=== PATIENT | female | born 1960 | race Caucasian/White ===

== ENCOUNTER 2024-02-18 11:20 | Outpatient (OUT) | payer OTHER, SELFPAY ==
--- NOTE | 2024-02-18 11:50 | MM_ITS ---
Patient Name: LENKA SILVERMAN MR#: [id number] : 1960 Exam Date: 02/18/2024 Ordering Doctor: Non-Staff Physician RADIOLOGY REPORT PROCEDURE: MM TOMOSYNTHESIS SCREENING BI COMPARISON: MG MAMM SCREEN 3D JACQUELINE CAD, 07/17/2022. MG MAMM SCREEN 3D JACQUELINE CAD, 07/11/2021. INDICATIONS: Screening Calculator Name NCI Breast Cancer Risk Assessment Tool 5 Year Breast Cancer Risk 1.90% Lifetime Breast Cancer Risk 8.60% Personal Breast Cancer No Personal Ovarian Cancer No Treatments None Family Cancers Aunt-paternal with breast cancer at age ~40. LOCATION: [facility] BREAST COMPOSITION: There are scattered areas of fibroglandular density. FINDINGS: DIAGNOSTIC CATEGORY 2--BENIGN FINDING. NO CHANGE FROM COMPARISON. Scattered benign-appearing calcifications are present. Limited exam secondary to difficulty positioning the patient with poor visualization axillary tails and posterior breasts RIGHT BREAST: No significant suspicious finding. LEFT BREAST: No significant suspicious finding. RECOMMENDATIONS: ROUTINE MAMMOGRAM AND CLINICAL EVALUATION IN 12 MONTHS. PLEASE NOTE: A NORMAL MAMMOGRAM DOES NOT EXCLUDE THE POSSIBILITY OF BREAST CANCER. A CLINICALLY SUSPICIOUS PALPABLE LUMP SHOULD BE BIOPSIED. Dictated by: Iraj Byrne MD on 02/18/2024 at 12:55 Approved by: Iraj Byrne MD on 02/18/2024 at 12:56
== END 2024-02-18 11:21 | disposition home or self-care (01) ==
LOC: MAMMO 11:20
DX: Z12.31 Encounter for screening mammogram for malignant neoplasm of breast (principal); Z80.3 Family history of malignant neoplasm of breast
CPT/HCPCS: 77063; 77067

== ENCOUNTER 2025-03-23 18:24 | Outpatient (OUT) | payer OTHER, SELFPAY ==
--- OUTSIDE RECORDS SUMMARY | 2025-03-23 18:30 | XMS_ITS | Patient Health Record ---
Author Organization [facility] in [place] Address [address] [place] [address] Care Team Providers Care Solar Installation Foreman Name Role Phone Dustin Joseph MD Primary Care Provider Unavailabl e Reason For Referral No Information Plan Of Treatment No Information Insurance Providers Payer Name Payer Address Payer Phone Subscriber Number Group Number Insured Name Patient Relationship to Insured Coverage Start Date Coverage End Date ANTHEM ACCESS PPO PLUS LOCAL PLAN [address] [place] [address] [id number] Katlin Carpenter Self - patient is the insured 5
--- OUTSIDE RECORDS SUMMARY | 2025-03-23 18:30 | XMS_ITS | Clinical Summary ---
Author Organization [facility] Address [address] [place] [address] Care Team Providers Care Chief Nursing Officer Name Role Phone Unavailable Primary Care Provider Unavailabl e Social History Tobacco UseTypesPacks/DayYears UsedDateSmoking Tobacco: Never Assessed CommentsUnknownSex and Gender InformationValueDate RecordedSex Assigned at Not on fileLegal OctTvcfog88/15/2023 6:43 PM EDTGender IdentityNot on fileSexual OrientationNot on file Last Filed Vital Signs Vital SignReadingTime TakenCommentsBlood Pressure--Pulse--Temperature-- Respiratory Rate--Oxygen Saturation--Inhaled Oxygen Concentration--Gblhbq79.1 kg (170 lb)01/05/2021 12:00 PM FDPZxqqet922 cm (5' 3 )10/24/2021 12:00 PM EDTBody Mass Index30.11001/05/2021 12:00 PM EDT Plan of Treatment Not on file Insurance
--- OUTSIDE RECORDS SUMMARY | 2025-03-23 18:30 | XMS_ITS | Clinical Summary ---
Author Organization [facility] Address [id number] [address] [place] [address] Care Team Providers Care Architectural Intern Name Role Phone No Pcp, No Pcp Primary Care Provider Unavailabl e Allergies Active AllergyReactionsCriticalityNoted DateCommentsSulfa (Sulfonamide Antibiotics)LyokRdc2602/15/2021 Medications No known medications Active Problems ProblemNoted DateDiagnosed DateSymptomatic opohzqhuibnnpv50/10/2021 Immunizations ImmunizationAdministration DatesNext DueCOVID-19 Vaccine, vector-nr, rS-Ad26, PF, 0.5mL07/27/2020 Family History Medical HistoryRelationNameCommentsOtherFatherunsureOtherMothercomplications after surgeryBreast cancerPaternal AuntColon cancerPaternal UncleOvarian cancer Neg HxRelationNameStatusCommentsFatherDeceasedMotherDeceasedPaternal Aunt Paternal Uncle Social History Tobacco UseTypesPacks/DayYears UsedDateSmoking Tobacco: NeverSmokeless Tobacco: NeverAlcohol UseStandard Drinks/WeekCommentsYes7 (1 standard drink = 0.6 oz pure alcohol) two half glasses a day ChildcareAnswerDate RecordedChildcareUnknown 10/29/2018EmploymentAnswerDate WtmzckgdRhdmslbavaJfpkyit19/12/2019Hunger ScreeningAnswerDate RecordedWithin the past 12 months we worried whether our food would run out before we got money to buy more.Never True09/29/2024Within the past 12 months the food we bought just didn't last and we didn't have money to get more.Never True09/29/2024Purpose - LifeAnswerDate RecordedPurpose and direction in bwpmDlyzjtf86/15/2021CommentsNoSex and Gender Information ValueDate RecordedSex Assigned at BirthNot on fileLegal ZnzEslaky84/06/2015 11:51 AM EDTGender IdentityNot on fileSexual OrientationNot on file Last Filed Vital Signs Vital SignReadingTime TakenCommentsBlood Xufuylob170/78009/29/2024 8:15 AM EDT Fvmpg430909/29/2024 8:15 AM XNIMasfuopyovo12.1 ??C (98.7 ??F)09/29/2024 5:00 AM EDTRespiratory Zpbz231009/29/2024 8:15 AM EDTOxygen Vjcamxdkch59%09/29/2024 8:15 AM EDTInhaled Oxygen Concentration--Todqtq82.9 kg (169 lb 9.6 oz)06/16/2021 9:15 AM ULTIftdik976 cm (5' 3 )06/16/2021 9:15 AM ESTBody Mass Index30.04006/16/2021 9:15 AM EST Plan of Treatment Health MaintenanceDue DateLast DoneCommentsDepression Mumpzkozy79/11/1974Tobacco Ibnvbapfk04/11/1974Adult BMI Ggkucpqez73/11/1980DTaP,Tdap and Td Vaccines (1 - Tdap)1980Pap Smear5006/16/2021, 06/16/2021, 05/31/2015COVID-19 Vaccine (3 - season)501/11/2021, 07/27/2020Influenza Vaccine 01/18/2025RSV ( or age 60+ yrs) (1 - 1-dose 75+ series)2036Zoster (Shingles) KfdmrzaWauzmvjgv54/13/2022, 07/01/2021 Medical Devices Not on file Procedures Procedure NamePriorityDate/TimeAssociated DiagnosisCommentsHIGH RISK HPV W/SHA Gferdnt8406/16/2021 10:52 AM EST from Last 3 Months or Most Recently Relevant to Health Maintenance Results * High risk HPV w/sha (06/16/2021 10:52 AM EST)ComponentValueRef RangeTest MethodAnalysis TimePerformed AtPathologist SignatureHpv specimen typeThinPrep 06/19/2021 10:52 AM ESTSUNQUESTHpv 16NegativeNegative^Kzizvkvw71/01/2022 2:41 PM [facility]Hpv 18NegativeNegative^Akuiberv38/01/2022 2:41 PM [facility] LABOther high risk hpvNegative Negative^Wsycjexo43/01/2022 2:41 PM [facility] LABComment: HPV types 31,33,35,39,45,52,56,58,59,66 and 68 DNA were undetectable. Specimen (Source)Anatomical Location / LateralityCollection Method / Volume Collection TimeReceived ShvqLAGGW92/28/2022 10:52 AM EST06/19/2021 10:52 AM EST Narrative Authorizing ProviderResult TypeResult StatusDacam Moulton MDLAB BLOOD ORDERABLESFinal ResultPerforming OrganizationAddressCity/State/ZIP CodePhone Number SUN[facility] [address] [facility] [address] [place] [address] from Last 3 Months or Most Recently Relevant to Health Maintenance Insurance Care Teams Team MemberRelationshipSpecialtyStart DateEnd Date [place], [place] [address] PCP - [facility]09/29/24
--- OUTSIDE RECORDS SUMMARY | 2025-03-23 18:30 | XMS_ITS | Clinical Summary ---
Author Organization [facility] Address [address] [place] [address] Care Team Providers Care Office Associate Name Role Phone Weston Hood Primary Care Provider [phone] Allergies Active AllergyReactionsCriticalityNoted DateCommentsSulfa (Sulfonamide Antibiotics)Hives,ZlrlTds0305/03/2010 Medications MedicationSigDispense QuantityRefillsLast FilledStart DateEnd DateStatus furosemide (Lasix) 20 mg tablet Take 20 mg by mouth in the morning.5Active valsartan (Diovan) 40 mg tablet Take 40 mg by mouth in the morning.5Active Encounters DateTypeDepartmentCare GdkxZqvgzjozufe96/13/2025 9:00 AM EDTFollow-Up [facility] [address] [place] [id number] Shruti Meza CNP Chest pain, unspecified type (Primary Dx)from Last 3 Months Social History Tobacco UseTypesPacks/DayYears UsedDateSmoking Tobacco: NeverSmokeless Tobacco: Never Tobacco Cessation:Counseling Given: Not Answered Alcohol UseStandard Drinks/WeekCommentsYes0 (1 standard drink = 0.6 oz pure alcohol)CommentsUnknownSex and Gender InformationValueDate RecordedSex Assigned at NjzkfHhgjgg90/13/2025 8:55 AM EDTLegal TpeXqoyhr91/14/2025 11:30 AM EDTGender EosiydwxIelsta38/13/2025 8:55 AM EDTSexual OrientationHeterosexual or Kfxqcokz81/13/2025 8:55 AM EDT Last Filed Vital Signs Vital SignReadingTime TakenCommentsBlood Naglchvs016/8112/30/2024 9:00 AM EDT Iujug905112/30/2024 9:00 AM EDTTemperature--Respiratory Rate--Oxygen Wlolprofqu09% 12/30/2024 9:00 AM EDTInhaled Oxygen Concentration--Cynknq39.6 kg (71 lb 12.8 oz)12/30/2024 9:00 AM UQPJzcdhk984 cm (5' 3 )12/30/2024 9:00 AM EDTBody Mass Index12.72012/30/2024 9:00 AM EDT Plan of Treatment Health MaintenanceDue DateLast DoneCommentsCT Wsfteeemkecf88/11/1962Colonoscopy 1961FOBT1961Jzycektzznfsc60/11/1962Depression Arycjqjhr13/11/1974Pap Smear1982Adult Tfxyhly3906/30/1983Cervical Cancer Kqslzvzhr32/11/1992 HPV/Rsfstw3406/30/19916699Tmejkdibv11/11/2002FIT-DNA06/25/271328/1Colorectal Cancer Oospffrrf84/28/2669UHH91/28/670316/4COVID-19 Vaccine ( season)501/11/2021, 07/27/2020Influenza Vaccine (#1)2025Zoster HcgpetlnHxtotbpkt76/13/2022, 07/01/2021HIB VaccinesAged OutNo longer eligible based on patient's age to complete this topicHPV VaccinesAged OutNo longer eligible based on patient's age to complete this topicIPV VaccinesAged OutNo longer eligible based on patient's age to complete this topicMeningococcal B VaccineAged OutNo longer eligible based on patient's age to complete this topic Meningococcal VaccineAged OutNo longer eligible based on patient's age to complete this topicPneumococcal Vaccine: Pediatrics (0 to 5 Years) and At-Risk Patients (6 to 64 Years)Aged OutNo longer eligible based on patient's age to complete this topicRotavirus VaccinesAged OutNo longer eligible based on patient's age to complete this topic Insurance Care Teams Team MemberRelationshipSpecialty[place] [address] [place] [address] PCP - [facility]11/18/24
--- OUTSIDE RECORDS SUMMARY | 2025-03-23 18:31 | XMS_ITS | CCD ---
Author Organization [facility] Care Team Providers Care Brick Setter Name Role Phone Unavailable Primary Care Provider Unavailkb BLACK, DR KRYSTLE Funes Consulting Unavailable NATAN ., DIVINA Primary Care Unavailable CEM, DR HUMMEL Admitting Unavailable CEM, DR HUMMEL Attending Unavailable CEM, DR HUMMEL Consulting Unavailable NATAN ., DIVINA Primary Care Unavailable MANNY, DR CESPEDES Admitting Unavailable MANNY, DR CESPEDES Consulting Unavailable MANNY, DR CESPEDES Attending Unavailable Silvia Rodgers Consulting Unavailable STONE HERNANDEZ Referring Unavailable SIMEON BRYANT Primary Care Unavailable ROBERTA HOOD Referring Unavailable STONE HERNANDEZ Primary Care Unavailable Stone Zepeda Primary Care Provider Roberta Hood DO Primary Care Provider STONE SLAUGHTER Attending Unavailable NO PCP, NO PCP Primary Care Unavailable JENIFER YIN Referring Unavailable NO PCP, NO PCP Primary Care Unavailable JENIFER YIN Attending Unavailable JENIFER YIN Attending Unavailable ARIES PARDO Attending Unavailable ARIES PARDO Referring Unavailable ROBERTA HOOD Primary Care Unavailable STONE HERNANDEZ Primary Care Unavailable DOMO SANABRIA Consulting Unavailable DOMO SANABRIA Admitting Unavailable BRODIE ANAYA Attending Unavailable ARIES PARDO Consulting Unavailable ARIES PARDO Attending Unavailable ARIES PARDO Referring Unavailable ROBERTA HOOD Primary Care Unavailable Allergies Allergy ClassificationReported Allergen(s)Allergy TypeDate of OnsetReaction(s) Facility (6 sources)Sulfonamides (Antibiotic)Propensity to adverse reactions to drug 81-00-9089NfbjYPH[address] [place] [address] (3 sources)Sulfonamides (Antibiotic); Translations: [SULFA (SULFONAMIDE ANTIBIOTICS)]Propensity to adverse reactions to drug (disorder)05-03-2010 [facility] Medications Current Medications MedicationDrug Class(es)DatesSig (Normalized)Sig (Original)Acetaminophen (1 source)Start: 61-18-3248djdktvgbkkfme (TYLENOL) tablet 650 mgElastic Bandages & Supports (MEDICAL COMPRESSION STOCKINGS) MISC (4 sources)Start: 99-47-1303Qjssvlh Bandages & Supports (MEDICAL COMPRESSION STOCKINGS) MISC Indications: Swelling of rightfoot 2 each by Does not apply route daily Right and left knee high compression stockings. 30-40 mmHg. To be worn continuously throughout the day. 2 each 02/04/2023 ActiveStart: 66-79-7457Mpdankz Bandages & Supports (MEDICAL COMPRESSION STOCKINGS) MIS Indications: Swelling of rightfoot 2 each by Does not apply route daily Right and left knee high compression stockings. 30-40 mmHg. To be worn continuously throughout the day. 2 each 02/04/2023 Suspendedfurosemide 20 mg oral tablet (4 sources)Loop DiureticStart: 10-22-2024 End: 77-40-0013nnen 1 tablet by mouth once dailyfurosemide (LASIX) 20 MG tablet Take 1 tablet by mouth daily 60 tablet 10/22/2024 11/21/2024 ActiveStart: 78-44-806454 mg, IntraVENous, 2 TIMES DAILY, First dose on Sat10/21/24 at 1800, Until Discontinuedketoconazole 20 mg/ml medicated shampoo (2 sources)Azole AntifungalStart: 29-19-5367nxauwfxzvltm (NIZORAL) 2 % shampoo LATHER ON WET HAIR, LEAVE ON 5 MIN, RINSE TOPICALLY ONCE A DAY Rxskiz54 ml magnesium sulfate 40 mg/ml injection (1 source)Start: 61-47-0970pidcuuevpf 20 mg delayed release oral capsule (2 sources)Proton Pump InhibitorStart: 09-29-2024 End: 45-55-4806nasw 1 capsule by mouth once dailyomeprazole (PRILOSEC) 20 MG delayed release capsule Take 1 capsule by mouth daily 09/29/2024 10/29/2024 Activeondansetron (ZOFRAN-ODT) disintegrating tablet 4 mg (1 source)Start: 99-48-2913acabwosoqfp (ZOFRAN-ODT) disintegrating tablet 4 mg polyethylene glycol 3350 29742 mg powder for oral solution (1 source)Osmotic LaxativeStart: 38-94-4441Dlciwiiby Chloride (1 source)Start: 10-20-2024 End: 04-63-4995kqmzrxsil chloride (KLOR-CON M) extended release tablet 40 mEq terbinafine 250 mg oral tablet (1 source)Allylamine AntifungalStart: 07-10-2022 End: 82-23-0218wfjc 1 tablet by mouth once dailyterbinafine (LAMISIL) 250 MG tablet Take 1 tablet by mouth daily 84 tablet 0 07/10/2022 10/02/2022 Active valsartan 40 mg oral tablet (4 sources)Angiotensin 2 Receptor BlockerStart: 37-55-4408nnlr 1 tablet by mouth once dailyvalsartan (DIOVAN) 40 MG tablet Take 1 tablet by mouth daily 30 tablet 10/23/2024 Active Completed/Discontinued Medications MedicationDrug Class(es)DatesSig (Normalized)Sig (Original)benzocaine 140 mg/ml / butamben 20 mg/ml / tetracaine 20 mg/ml mucosal spray (1 source)Heather Local Anesthetic, Standardized Chemical AllergenStart: 11-09-2024 End: 60-93-7764YGG, Starting on Sat11/09/24 at 0920, Until Sat11/09/24 at 0920, Intra-procedure(Cath)colchicine 0.6 mg oral tablet (1 source)Start: 61-52-5222muge 0.6 mg by mouth twice daily0.6 mg, Oral, 2 TIMES DAILY, First dose on Sat10/20/24 at 2100, Until Discontinued2 ml fentaNYL 0.05 mg/ml injection (1 source)Opioid AgonistStart: 11-09-2024 End: 93-03-3844PsbgaSYJwui, PRN, Starting on Sat11/09/24 at 0921, Until Sat11/09/24 at 0921, Intra-opibuprofen 600 mg oral tablet (1 source)Nonsteroidal Anti-inflammatory DrugStart: 74-14-9917qfwb 600 mg by mouth three times daily at baqhrgat527 mg, Oral, 3 TIMES DAILY WITH MEALS, First dose on Sat10/21/24 at 0800, Until Discontinuediopamidol (ISOVUE-370) 76 % injection 75 mL (1 source)Start: 10-20-2024 End: 55-50-2189bcwx 1 dose intravenously once75 mL, IntraVENous, IMG ONCE PRN, 1 dose, Starting on Sat10/20/24 at 1630, Until Sat10/20/24 at 1723,OtherlevoFLOXacin 750 mg oral tablet (2 sources)Quinolone AntimicrobialStart: 10-19-2024 End: 00-73-2958qcvi 1 tablet by mouth once dailylevoFLOXacin (LEVAQUIN) 750 MG tablet Indications: Left lower lobe pulmonary infiltrate Take 1 tablet by mouth daily for 5 days 5 tablet 10/19/2024 10/22/2024 Discontinued (Stop Taking at Discharge)lidocaine hydrochloride 20 mg/ml mucous membrane topical solution (1 source)Antiarrhythmic, Amide Local AnestheticStart: 11-09-2024 End: 63-93-8107ZUI, Starting on Sat11/09/24 at 0921, Until Sat11/09/24 at 0921, Intra-procedure(Cath)2 ml midazolam 1 mg/ml injection (1 source)BenzodiazepineStart: 11-09-2024 End: 01-20-3102FspvgVYRsxh, PRN, Starting on Sat11/09/24 at 0921, Until Sat11/09/24 at 0921, Intra-procedure(Cath)pantoprazole 40 mg delayed release oral tablet (1 source)Proton Pump InhibitorStart: 72-81-232092 mg, Oral, DAILY BEFORE BREAKFAST, First dose on Sat10/21/24 at 0700, Until Discontinued, Do not crush or break. Substituted for Omeprazole (PRILOSEC).5 ml sodium chloride 9 mg/ml injection (3 sources)Start: -40 mL, IntraVENous, EVERY 12 HOURS SCHEDULED (2 times per day), First dose on Sat10/20/24 at 2100,Until Discontinued, For Line Patency: Peripheral IV = 5 mL; Midline or Central Line = 10 mL/lumen. If following IV push medication, administer flush at same rate as the IV push. Flush volume is determined by type of infusion therapy being given. For non- viscous solutions use: Peripheral IV = 5 mL Midline or Central Line = 10 mL/lumen For viscous solutions (i.e. blood components, parenteral nutrition, contrast media, or after obtaining blood sample) use: Peripheral IV = 10 mL Midline or Central Line = 20 mL/lumenStart: 36-88-7839Orjhq: 10-20-2024 Problems Active Problems Problem ClassificationProblemDateDocumented DateEpisodic/ChronicAbdominal pain (3 sources)Epigastric pain; Translations: [Epigastric pain]Onset: 09-29-2024 EpisodicCongestive heart failure; nonhypertensive (2 sources)Acute congestive heart failure; Translations: [Heart failure, unspecified]Onset: 190982-98-3424QomdqkrNklzcjy (1 source)Onychomycosis; Translations: [Tinea unguium]EpisodicNonspecific chest pain (4 sources)Other chest pain; Translations: [Chest pain]Onset: 25-54-9089Qpklgfep Osteoarthritis (4 sources)Arthritis of right ankle; Translations: [Primary osteoarthritis, right ankle and foot]Onset: 766771-28-2686NnuzsrxWsxea gastrointestinal disorders (3 sources)Eructation; Translations: [Eructation]Onset: 59-37-0237VpllqbptCsgdh lower respiratory disease (1 source)Other nonspecific abnormal finding of lung field; Translations: [Other nonspecific abnormal findingof lung field]Onset: 69-78-9770LrisxcvgBwkcr lower respiratory disease (1 source)Single lobe lung infiltrate; Translations: [Other nonspecific abnormal finding of lung field]13-39-9777TqeslwxmMjlgg screening for suspected conditions (not mental disorders or infectious disease) (4 sources)Encounter for screening mammogram for malignant neoplasm of breast; Translations: [ENC SCR MAMMO MALIG NEOPLASM BREAST]Onset: 29-91-3282Ocgmgdhi Bee-; endo-; and myocarditis; cardiomyopathy (except that caused by tuberculosis or sexually transmitted disease) (13 sources)Pericardial effusion; Translations: [Pericardial effusion]Onset: 333816-91-9342GhqnemoyKghfwfsi codes; unclassified (1 source)Family history of malignant neoplasm of breast; Translations: [FAMILY HX MALIG NEOPLASM OF BREAST]Onset: 09-50-6532ZybuajdnAwgubufuoqjf (1 source)chest pressure since 199Onset: 24-65-0865Wmvqeumvqcgq (1 source)Other pericardial effusion (noninflammatory); Translations: [Other pericardial effusion (noninflammatory)]Onset: 10-20-2024 Past or Other Problems Problem ClassificationProblemDateDocumented DateEpisodic/ChronicDeficiency and other anemia (2 sources)Anemia; Translations: [Anemia, unspecified]Onset: 05-03-2010 00-96-4391TzzibkenIjebizs and fatigue (1 source)Weakness; Translations: [WEAKNESS]Onset: 66-31-9939PpwsgscgHctwn nervous system disorders (4 sources)Paresthesia of skin; Translations: [PARESTHESIA OF SKIN]Onset: 29-74-0121HompbumuRudvslmn; pneumothorax; pulmonary collapse (7 sources)Bilateral pleural effusion; Translations: [Pleural effusion, not elsewhere classified]Onset: 108961-18-5844Qocysiuk Results Test NameValueInterpretationReference RangeFacilityFollow-Upon 12-30-2024 Follow-[id number] Katlin Carpenter 1960 F Date Provider Department Center 12/30/2024 1946-JENIFER YIN [facility] No family history on file Level of Service:09756 [place] OFFICE/OUTPATIENT ESTABLISHED LOW MDM 20 MIN Reason for Visit and Comments: Follow-up [308827] - Test results from stool.NormalUnMercy HospitalCult,Mycobacteriaon 63-28-3908Ounx,MycobacteriaSpecimen Description .THORACENTESIS FLUID Direct Exam NO ACID FAST BACILLI SEEN (CONCENTRATED SMEAR) Culture NO GROWTH 46 DAYS Report Status FINAL 12/07/2024NormalMercy Northbay Medical CenterComment on above:Performed By: #### TROPI #### [facility] [address] [place] [address] Wall Steamer: RA Ocampo PYLORI???ANTIGEN, FECALon 14-80-1838SHHONDFRPKXK PYLORI AG, BY EIANegativeNormalNegativeProCentervilleca St. Rita'S HospitalComment on above:Result Comment: Performed By: [facility] [address] [place] [address] Retail Sales Lead: Josh Negro MD, PhD [place] Number: [id number] By: #### HPYLAG #### [facility] [address] [place] [address] VIRFollow-Upon 43-61-9987Yefxxr-[id number] Katlin Carpenter 1960 F Date Provider Department Center 11/18/20241946-JENIFER YIN [facility] No family history on file Level of Service:57215 [place] OFFICE/OUTPATIENT NEW MODERATE MDM 45 MINUTES Reason for Visit and Comments: New Patient [632] - Epigastric pain/belchingNormalUniversity of University Medical Center [facility] El PasoUS Heart Transesophagealon 67-04-0657ND Lddjknqlg92 %[facility] Ventricle: Normal left ventricular systolic function with a visually estimated EF of 55 - 60%. EF by visual approximation is 55%. Left ventricle size is normal. Normal wall thickness. Normal wall motion. Right Ventricle: Right ventricle size is normal. Mitral Valve: Mild prolapse of the anterior leaflet noted. 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 Mild to moderate regurgitation with an eccentrically directed jet. Image quality is adequate. Left Ventricle Normal left ventricular systolic function with a visually estimated EF of 55 - 60%. EF by visual approximation is 55%. Left ventricle size is normal. Normal wall thickness. Normal wall motion. Indeterminate diastolic function. Right Ventricle Right ventricle size is normal. Left Atrium Left atrium size is normal. Right Atrium Right atrium size is normal. Mitral Valve Thickened leaflets. Mild prolapse of the anterior leaflet noted. Moderate regurgitation with an eccentrically directed jet and may underestimate severity. No stenosis noted. Tricuspid Valve Valve structure is normal. Trace regurgitation. No stenosis noted. Aortic Valve Trileaflet valve. No regurgitation. No stenosis. Pericardium The pericardium is normal. No pericardial effusion. Septum No interatrial shunt visualized with color Doppler. Study Details Image quality: adequate. Unable to obtain informed consent. CARY probe number: [id number]. CARY probe was inserted by the heat treater helper with no difficulty. Sedation was achieved by conscious sedation. No complications. Color flow Doppler was performed. No contrast was given.[facility] CV CPACS HEMOBSentara [facility] Radiology Study observation (narrative)[facility] HealthCT CHEST PULMONARY EMBOLISM W CONTRASTon 23-77-6106AV CHEST PULMONARY EMBOLISM W CONTRAST EXAMINATION: CTA OF THE CHEST 10/20/2024 4:59 pm TECHNIQUE: CTA of the chest was performed after the administration of intravenous contrast. Multiplanar reformatted images are provided for review. MIP images are provided for review. Automated exposure control, iterative reconstruction, and/or weight based adjustment of the mA/kV was utilized to reduce the radiation dose to as low as reasonably achievable. COMPARISON: 10/19/2024 HISTORY: ORDERING SYSTEM PROVIDED HISTORY: elevated dimer, SOB TECHNOLOGIST PROVIDED HISTORY: Elevated dimer, SOB Additional Contrast?->1 FINDINGS: Pulmonary Arteries: Pulmonary arteries are adequately opacified for evaluation. No evidence of intraluminal filling defect to suggest pulmonary embolism. Main pulmonary artery is normal in caliber. Mediastinum: A moderate to large pericardial effusion is present, with pericardial thickening and enhancement. The esophagus is within normal limits. No mediastinal adenopathy. The thyroid is poorly visualized. Lungs/pleura: Moderate left pleural effusion and small right pleural effusion. There is consolidation and atelectasis of the infrahilar left lung. Mild right basilar atelectasis. Patent central airways. No pneumothorax. Upper Abdomen: Limited images of the upper abdomen are unremarkable. Soft Tissues/Bones: No acute bone or soft tissue abnormality. IMPRESSION: 1. No evidence of pulmonary embolism. 2. Moderate to large pericardial effusion with findings suggestive of pericarditis. 3. Moderate left pleural effusion and small right pleural effusion. 4. Consolidation and atelectasis of the infrahilar left lung. Interpreted by: Simeon Durbin MD Signed by: Simeon Durbin MD 10/30/24 Final resultNormalMerMadera Community HospitalBasic Metabolic Profon 96-20-4289Gkxyp gap [Moles/Vol]10 mmol/LNormal9-16MerMadera Community HospitalComment on above:Performed By: #### BMP #### [facility] [address] [place] [address] Wall Steamer: KAR Ocampoalcium [Mass/Vol]10.0 mg/dLNormal8.6-10.4Mercy Terre Haute Medical CenterComment on above:Performed By: #### BMP #### [facility] [place] [address] Wall Steamer: KAR Ocampohloride [Moles/Vol]104 mmol/YHelrpr14-605SvdgpLakehealth Beachwood Medical CenterComment on above:Performed By: #### BMP #### [facility] [address] [place] [address] Wall Steamer: Jas Hernandez MDCO2 [Moles/Vol]26 mmol/LQuliav42-74UyujoLakehealth Beachwood Medical CenterComment on above:Performed By: #### BMP #### [facility] [address] [place] [address] Wall Steamer: KAR Ocamporeatinine [Mass/Vol]0.6 mg/dLNormal0.6-0.9L[facility] Beachwood Medical CenterComment on above:Performed By: #### BMP #### [facility] [address] [place] [address] Wall Steamer: Jas Hernandez MDGFR/1.73 sq M.predicted among non-blacks MDRD (S/P/Bld) [Vol rate/Area]mL/min/{1.73_m2}Normal>60Lakehealth Beachwood Medical CenterComment on above:Result Comment: These results are not intended for use in patients <18 years of age. eGFR results are calculated without a race factor using the 2020 CKD-EPI equation. Careful clinical correlation is recommended, particularly when comparing to results calculated using previous equations. The CKD-EPI equation is less accurate in patients with extremes of muscle mass, extra-renal metabolism of creatine, excessive creatine ingestion, or following therapy that affects renal tubular secretion.Performed By: #### BMP #### [facility] [address] [place] [address] Wall Steamer: Jas Hernandez MDGlucose [Mass/Vol]88 mg/gRNzknrn83-06ZczewSanta Teresita HospitalComment on above:Performed By: #### BMP #### [facility] [place] [address] Wall Steamer: OCTAVIO Ocampootassium [Moles/Vol]4.6 mmol/LNormal3.7-5.3 [facility] Medical CenterComment on above:Performed By: #### BMP #### [address] [address] Wall Steamer: MARITZA Ocampoodium [Moles/Vol]140 mmol/SKmvewt420-357SpmgqLakehealth Beachwood Medical CenterComment on above:Performed By: #### BMP #### [address] [address] Wall Steamer: Jas Hernandez MDUrea nitrogen [Mass/Vol]24 mg/dLHigh8-23L[facility] Beachwood Medical CenterComment on above:Performed By: #### BMP #### [address] [address] Wall Steamer: Jas Hernandez MDCult,Fluidon 01-31-9668Gzqb,FluidSpecimen Description .THORACENTESIS FLUID LEFT Direct Exam MANY NEUTROPHILS NO ORGANISMS SEEN Gram stain made from cytocentrifuged specimen. Organisms and cells will be concentrated. Culture NO GROWTH 6 DAYS Report Status FINAL 10/27/2024NormalLakehealth Beachwood Medical CenterComment on above:Performed By: #### FLCU #### [address] [address] Wall Steamer: Lore Ocampo Deam Pleur Flon 46-56-1100Cbszxncya Deam Pl Fl5 U/LNormal0-30Lakehealth Beachwood Medical CenterComment on above:Result Comment: (NOTE) INTERPRETIVE INFORMATION:Adenosine Deaminase, Pleural Fluid This test was developed and its performance characteristics determined by [facility]. It has not been cleared or approved by the [place] Food and Drug Administration. This test was performed in a CLIA certified laboratory and is intended for clinical purposes. Performed By: [facility] [address] [place] [address] Retail Sales Lead: Josh Negro MD, PhD CLIA Number: [id number] By: #### FLTP, FLLD, FLDCT, FLQPH, FLGLU #### [facility] [address] [place], [place] [id number] Wall Steamer: Jas Hernandez MD #### ADAPF #### [facility] [address] [place], [place] [id number] Wall Steamer: Vin Zavala [facility] HUGOell Count with Differential, Body Fluidon 15-50-2603Nzrqeonnga (Body fld)HazyBon Secours Mercy HealthClot CheckNone Seen [facility] HealthColor (Body fld)YellowBon Secours Mercy HealthFluid Nom (Body fld).THORACENTESIS FLUIDBon Secours Mercy HealthComment on above:LEFT Lymphocytes/100 WBC (Body fld)53 %[facility] Mercy HealthComment on above:No normal range established for fluids.Mesothelial Cells Body Fluid8 %[facility] Mercy HealthComment on above:No normal range established for fluids. Monocytes/100 WBC (Body fld)9 %[facility] Mercy HealthComment on above:No normal range established for fluids.Neutrophils/100 WBC (Body fld)30 %[facility] Mer[facility] HealthComment on above:No normal range established for fluids. Nucleated cells (Body fld) [#/Vol]3250cells/uLBon Secours Mercy HealthComment on above:No normal range established for fluids.RBC (Body fld) [#/Vol]79161 10*3/uLcells/uLBon Secours Mercy HealthComment on above:No normal range established for fluids.Bon SecHövdingy HealthFluid Cell Count and Diffon 83-03-5415Hanl Fluid Mesothelials8 %NormalLakehealth Beachwood Medical Center Comment on above:Result Comment: No normal range established for fluids. Performed By: #### FLTP, FLLD, FLDCT, FLQPH, FLGLU #### [facility] [address] [place], [place] [id number] Wall Steamer: Jas Hernandez MD #### ADAPF #### [facility] [address] [place] [address] Wall Steamer: TUCKER Lott CHEST (2 VW)on 15-42-1786CE CHEST (2 VW) EXAMINATION: TWO XRAY VIEWS OF THE CHEST 10/22/2024 11:15 am COMPARISON: Two-view chest from 10/19/[address] chest from 10/20/2024. HISTORY: ORDERING SYSTEM PROVIDED HISTORY: chest pain s/p thoracentesis TECHNOLOGIST PROVIDED HISTORY: chest pain s/p thoracentesis FINDINGS: Overlying ECG monitor leads and gown snaps. Cardiomediastinal shadow stable. Slightly decreased opacity left lung base and slightly less blunting of the lateral left costophrenic angle. Minimal blunting right lateral costophrenic angle. Mild cephalization of blood flow but no Marcus lines. Probable atelectasis left base possibly subsegmental. Bones unchanged. IMPRESSION: 1. Slightly decreased opacity left lung base and slightly smaller left effusion. 2. Stable probable small right effusion. 3. Stable cardiomegaly with mild pulmonary hypertension but no radiographic CHF. Interpreted by: Damion Loya MD Signed by: Damion Loya MD 10/22/24 Final resultNormalLakehealth Beachwood Medical CenterXR Chest 2 Viewson 10-22-2024 1. Slightly decreased opacity left lung base and slightly smaller left effusion. 2. Stable probable small right effusion. 3. Stable cardiomegaly with mild pulmonary hypertension but no radiographic CHF. MHPN RIS CONSOLIDATEDEXAMINATION: TWO XRAY VIEWS OF THE CHEST 10/22/2024 11:15 am COMPARISON: Two-view chest from 10/19/[address] chest from 10/20/2024. HISTORY: ORDERING SYSTEM PROVIDED HISTORY: chest pain s/p thoracentesis TECHNOLOGIST PROVIDED HISTORY: chest pain s/p thoracentesis FINDINGS: Overlying ECG monitor leads and gown snaps. Cardiomediastinal shadow stable. Slightly decreased opacity left lung base and slightly less blunting of the lateral left costophrenic angle. Minimal blunting right lateral costophrenic angle. Mild cephalization of blood flow but no Marcus lines. Probable atelectasis left base possibly subsegmental. Bones unchanged. MHPN RIS CONSOLIDATEDRabin, Damion M, MD - 10/22/2024 EXAMINATION: TWO XRAY VIEWS OF THE CHEST 10/22/2024 11:15 am COMPARISON: Two-view chest from 10/19/[address] chest from 10/20/2024. HISTORY: ORDERING SYSTEM PROVIDED HISTORY: chest pain s/p thoracentesis TECHNOLOGIST PROVIDED HISTORY: chest pain s/p thoracentesis FINDINGS: Overlying ECG monitor leads and gown snaps. Cardiomediastinal shadow stable. Slightly decreased opacity left lung base and slightly less blunting of the lateral left costophrenic angle. Minimal blunting right lateral costophrenic angle. Mild cephalization of blood flow but no Marcus lines. Probable atelectasis left base possibly subsegmental. Bones unchanged. IMPRESSION: 1. Slightly decreased opacity left lung base and slightly smaller left effusion. 2. Stable probable small right effusion. 3. Stable cardiomegaly with mild pulmonary hypertension but no radiographic CHF. [facility] Brain Synergy InstituteRadiology Study observation (narrative)[facility] Brain Synergy InstituteXR Chest 2 ViewsOrdered By: Damion Loya on 50-76-1644Dzl [address] Mary'S HospitalKIYATEC Work Phone: Basic Metab w/rfx MGon 40-99-1337Hplvx gap [Moles/Vol] 13 mmol/LNormal9-16[facility] Medical CenterComment on above:Performed By: #### TROPI #### [facility] [address] [place] [address] Wall Steamer: KAR Ocampoalcium [Mass/Vol]9.1 mg/dLNormal8.6-10.4L[facility] Medical CenterComment on above:Performed By: #### TROPI #### [facility] [address] [place] [address] Wall Steamer: KAR Ocampohloride [Moles/Vol]102 mmol/IHyhvym40-212EuvdmLakehealth Beachwood Medical CenterComment on above:Performed By: #### TROPI #### [facility] [address] [place] [address] Wall Steamer: Jas Hernandez MDCO2 [Moles/Vol]19 mmol/FZdl74-27NbwkiLakehealth Beachwood Medical CenterComment on above:Performed By: #### TROPI #### [facility] HospitalBridge[facility] [address] [place] [address] Wall Steamer: KAR Ocamporeatinine [Mass/Vol]0.4 mg/dLLow0.6-0.9Lakehealth Beachwood Medical CenterComment on above:Performed By: #### TROPI #### [facility] [employer] [address] [place] [address] Wall Steamer: Jas Hernandez MDGFR/1.73 sq M.predicted among non-blacks MDRD (S/P/Bld) [Vol rate/Area]mL/min/{1.73_m2}Normal>60L[facility] Beachwood Medical CenterComment on above:Result Comment: These results are not intended for use in patients <18 years of age. eGFR results are calculated without a race factor using the 2020 CKD-EPI equation. Careful clinical correlation is recommended, particularly when comparing to results calculated using previous equations. The CKD-EPI equation is less accurate in patients with extremes of muscle mass, extra-renal metabolism of creatine, excessive creatine ingestion, or following therapy that affects renal tubular secretion.Performed By: #### TROPI #### [facility] [address] [place] [address] Wall Steamer: Jas Hernandez MDGlucose [Mass/Vol]113 mg/oYKsvw25-25XzktzKaiser Manteca Medical CenterComment on above:Performed By: #### TROPI #### [facility] [address] [place] [address] Wall Steamer: Jas Hernandez MDPotassium [Moles/Vol]3.9 mmol/LNormal3.7-5.3 [facility] CenterComment on above:Performed By: #### TROPI #### [facility] [address] [place] [address] Wall Steamer: MARITZA Ocampoodium [Moles/Vol]134 mmol/OLmp787-640MkearLakehealth Beachwood Medical CenterComment on above:Performed By: #### TROPI #### [facility] [address] [place] [address] Wall Steamer: Jas Hernandez MDUrea nitrogen [Mass/Vol]14 mg/dLNormal8-23L[facility] Beachwood Medical CenterComment on above:Performed By: #### TROPI #### [facility] [address] [place] [address] Wall Steamer: Jas Hernandez MDBawilliamson arh hospital Metabolic Panel w/ Reflex to MGon [id number] gap [Moles/Vol]13 mmol/L9 - 16 mmol/LBon St. Mary'S HospitalKIYATEC Calcium [Mass/Vol]9.1 mg/dL8.6 - 10.4 mg/dLBon St. Mary'S HospitalKIYATECChloride [Moles/Vol]102 mmol/L98 - 107 mmol/LBon SecKIYATECCO2 [Moles/Vol]19 mmol/LLow20 - 31 mmol/LBon SecKIYATECCreatinine [Mass/Vol]0.4 mg/dLLow 0.6 - 0.9 mg/dLBon SecKIYATECEst, Glom Filt Rate- PINFBon St. Mary'S HospitalKIYATECComment on above: These results are not intended for use in patients <18 years of age. eGFR results are calculated without a race factor using the 2020 CKD-EPI equation. Careful clinical correlation is recommended, particularly when comparing to results calculated using previous equations. The CKD-EPI equation is less accurate in patients with extremes of muscle mass, extra-renal metabolism of creatine, excessive creatine ingestion, or following therapy that affects renal tubular secretion. Glucose [Mass/Vol]113 mg/hLDtlu32 - 99 mg/dLBon [facility] Interpretation and review of laboratory resultsAbnormalBon St. Mary'S HospitalKIYATEC Potassium [Moles/Vol]3.9 mmol/L3.7 - 5.3 mmol/LBon SecKIYATECSodium [Moles/Vol]134 mmol/OJga954 - 145 mmol/LBon [facility] Charles HospitalUrea nitrogen [Mass/Vol]14 mg/dL8 - 23 mg/dLBon SecRichland Center CBC with Auto Differentialon [id number] (Bld) [#/Vol]0.06 10*3/uLBon SecThe Jewish HospitalBasophils/100 WBC (Bld)1 %0 - 2 %[facility] Eosinophils (Bld) [#/Vol]0.06 10*3/uLBon Secours Wooster Community HospitalEosinophils/100 WBC (Bld)1 %1 - 4 %[facility] HospitalErythrocyte distribution width (RBC) [Ratio]12 %11.8 - 14.4 %[facility]S HospitalHematocrit (Bld) [Volume fraction]39.4 %36.3 - 47.1 %[facility] HospitalHemoglobin (Bld) [Mass/Vol] 12.3 g/dL11.9 - 15.1 g/dLBon [facility] Charles HospitalImmature granulocytes (Bld) [#/Vol]0.11 10*3/uLBon [facility] Charles HospitalImmature granulocytes/100 WBC (Bld)1 %Qepm5FceInova Women'S HospitalInterpretation and review of laboratory results AbnormalBon [facility] St[facility] Charles HospitalLymphocytes/100 WBC (Bld)13 %Low24 - 43 %[facility]'S HospitalLymphocytes/100 WBC (Bld)1.58 %[facility] HealthcareH (RBC) [Entitic mass]29 pg25.2 - 33.[address] [facility] HospitalHC (RBC) [Mass/Vol]31.2 g/dL28.4 - 34.8 g/dLBon SecParkwood HospitalV (RBC) [Entitic vol]92.9 fL82.6 - 102.9 fLInova Women'S HospitalMonocytes/100 WBC (Bld)11 %3 - 12 %Bon [facility] HospitalMonocytes/100 WBC (Bld)1.27 %HighInova Women'S HospitalNeutrophils/100 WBC (Bld)73 %High36 - 65 %[facility] Nucleated RBC/100 WBC (Bld) [Ratio]0 %0.0 per 100 WBCInova Women'S Hospital Platelet mean volume (Bld) [Entitic vol]9.4 fL8.1 - 13.5 fLInova Women'S HospitalPlatelets (Bld) [#/Vol]442 10*3/uLInova Women'S HospitalRBC (Bld) [#/Vol]4.24 10*6/uL3.95 - 5.11 m/uLInova Women'S HospitalSegmented neutrophils/100 WBC (Bld)8.83 %HighInova Women'S HospitalWBC other (Bld) [#/Vol]11.9HighBath Community HospitalCBC with Diffon [id number]. Basophil0.06 k/uLNormal0.00-0.20[facility] Comment on above:Performed By: #### TROPI #### [place] [address] Wall Steamer: Drew Ocampo.Imm.Granulocyte0.11 k/uLNormal0.00-0.30L[facility] Beachwood Medical CenterComment on above:Performed By: #### TROPI #### [address] [address] Wall Steamer: Drew Ocampo.Neutrophil (Seg)8.83 k/uLHigh1.50-8.10L[facility] Beachwood Medical CenterComment on above:Performed By: #### TROPI #### [address] [address] Wall Steamer: Jas Hernandez MDBasophils/100 WBC (Bld)1 %Normal0-2MSanta Teresita HospitalComment on above:Performed By: #### TROPI #### [address] [address] Wall Steamer: Jas Hernandez MDEosinophils (Bld) [#/Vol]0.06 10*3/uLNormal 0.00-0.44L[facility] Beach[facility] Medical CenterComment on above:Performed By: #### TROPI #### [place] [address] Wall Steamer: Jas Hernandez MDEosinophils/100 WBC (Bld)1 %Normal1-4L[facility] Medical CenterComment on above:Performed By: #### TROPI #### [place] [address] Wall Steamer: Jas Hernandez MDErythrocyte distribution width (RBC) [Ratio]12.0 %Ljxhyi34.8-14.4L[facility] Beachwood Medical CenterComment on above:Performed By: #### TROPI #### [place] [address] Wall Steamer: Jas Hernandez MDHematocrit (Bld) [Volume fraction]39.4 %Normal 36.3-47.1MSanta Teresita HospitalComment on above:Performed By: #### TROPI #### [place] [address] Wall Steamer: Jas Hernandez MDHemoglobin (Bld) [Mass/Vol]12.3 g/dLNormal 11.9-15.1MSanta Teresita HospitalComment on above:Performed By: #### TROPI #### [place] [address] Wall Steamer: Jas Hernandez MDImmature granulocytes/100 WBC (Bld)1 %Lymx5GtmgvLakehealth Beachwood Medical CenterComment on above:Performed By: #### TROPI #### [place] [address] Wall Steamer: Jas Hernandez MDLymphocytes (Bld) [#/Vol]1.58 10*3/uLNormal 1.10-3.70L[facility] Medical CenterComment on above:Performed By: #### TROPI #### [address] [address] Wall Steamer: Jas Hernandez MDLymphocytes/100 WBC (Bld)13 %Beo19-97ZloadLakehealth Beachwood Medical CenterComment on above:Performed By: #### TROPI #### [place] [address] Wall Steamer: SHANNAN OcampoCH (RBC) [Entitic mass]29.0 reHawplr40.2-33.5 [facility] CenterComment on above:Performed By: #### TROPI #### [address] [address] Wall Steamer: SHANNAN OcampoCHC (RBC) [Mass/Vol]31.2 g/rMKwgxze75.4-34.8 [facility] CenterComment on above:Performed By: #### TROPI #### [address] [address] Wall Steamer: SHANNAN OcampoCV (RBC) [Entitic vol]92.9 nRUhgrzh06.6-102.9 [facility] CenterComment on above:Performed By: #### TROPI #### [place] [address] Wall Steamer: Jas Hernandez MDMonocytes (Bld) [#/Vol]1.27 10*3/uLHigh0.10-1.20 [facility] CenterComment on above:Performed By: #### TROPI #### [address] [address] Wall Steamer: SHANNAN Ocampoonocytes/100 WBC (Bld)11 %Normal3-12L[facility]wood Medical CenterComment on above:Performed By: #### TROPI #### [facility] [address] [place] [address] Wall Steamer: Yocasta Ocampo (Seg)73 %Ttum75-21AlwtfLakehealth Beachwood Medical CenterComment on above:Performed By: #### TROPI #### [facility] [address] [place] [address] Wall Steamer: MALIKA Ocampo Automated0.0 per 100 WBCNormal0.0L[facility] Beachwood Medical CenterComment on above:Performed By: #### TROPI #### [facility] [employer] [address] [place] [address] Wall Steamer: Erika Ocampo mean volume (Bld) [Entitic vol]9.4 fL Normal8.1-13.5L[facility] Beachwood Medical CenterComment on above:Performed By: #### TROPI #### [address] [address] Wall Steamer: Vipul Ocampo (Bld) [#/Vol]442 10*3/iTLlphbp816-894 [facility] CenterComment on above:Performed By: #### TROPI #### [address] [address] Wall Steamer: ELIA Ocampo (Bld) [#/Vol]4.24 10*6/uLNormal3.95-5.11 [facility] CenterComment on above:Performed By: #### TROPI #### [address] [address] Wall Steamer: CIARRA Ocampo (Bld) [#/Vol]11.9 10*3/uLHigh3.5-11.3MSanta Teresita HospitalComment on above:Performed By: #### TROPI #### [facility] [employer] [address] [place] [address] Wall Steamer: Jas Hernandez [facility] HUGOardiac echo study Procedureon [id number] Root Index1.69 cm/m2[facility] HealthAortic Root3.1 cmBon Secours Mer[facility] HealthAscending Aorta3.7 cmBon [facility]ours Mer[facility] HealthAscending Aorta Index2.02 cm/m2[facility] HealthAV Area by Peak Velocity2.5 cm2[facility] HealthAV Area by VTI2.7 cm2[facility] HealthAV Mean Zrrvibyv4geSeXtj Secours [facility] HealthAV Mean Velocity0.9 m/sBon [facility]ours Mercy HealthAV Peak Qbyvwyuy1imGxXrf [facility] HealthAV Peak Velocity1.2 m/sBon [facility]ours Mercy HealthAV Velocity Ratio0.83[facility] HealthAV VTI21.5 cmBon [facility] HealthAVA/BSA Peak Velocity1.4 cm2/m2[facility] HealthAVA/BSA VTI 1.5 cm2/m2[facility] HealthBody surface area Derived from formula1.88 m2 [facility] HealthE/E' Lateral6.09[facility] HealthE/E' Ratio (Averaged)8.37[facility] HealthE/E' Jznawl15.65[facility] HealthEF BP54 %Nuhljbhw18 - 100 %[facility] HealthEF Atlkesnlq07 %[facility] HealthEst. RA Vvykiviy8wgFcBup Secours Mercy HealthFractional Shortening 2D32 %28 - 44 %[facility] HealthInterpretation and review of laboratory resultsAbnormalBon [facility]ours Mer[facility] HealthIVSd0.9 cm0.6 - 0.9 cmBon Secours Mercy HealthLA Area 2C15.7 cm2Bon [facility] HealthLA Area 4C16.2 cm2Bon [facility] Mercy HealthLA Diameter2.6 cmBon Secours Mercy HealthLA Major Axis5.9 cmBon Secours Mercy HealthLA Minor Axis4 cmBon Secours Mercy HealthLA Size Index1.42 cm/m2[facility] Mer[facility] HealthLA Volume Index MOD A2C28 ml/m216 - 34 ml/m2[facility] HealthLA Volume Index MOD A4C20 ml/m216 - 34 ml/m2[facility] HealthLA Volume MOD A2C52 mL22 - 52 mLBon Secours Mercy HealthLA Volume MOD A4C36 mL22 - 52 mLBon Secours Mercy HealthLA/AO Root Ratio0.84[facility] HealthLV E' Lateral Velocity8.38 cm/sBon Secours Mercy HealthLV E' Septal Velocity4.79 cm/sBon Secours Mercy HealthLV EDV A2C66 mLBon [facility] LV EDV A4C70 mLBon Secours Mercy HealthLV EDV Index A2C36 mL/m2[facility] HealthLV EDV Index A4C38 mL/m2[facility] HealthLV Ejection Fraction A2C 53 %[facility] HealthLV Ejection Fraction A4C53 %[facility] LV ESV A2C31 mLBon Secours Mercy HealthLV ESV A4C33 mLBon Secours Mercy HealthLV ESV Index A2C17 mL/m2[facility] HealthLV ESV Index A4C18 mL/m2[facility] HealthLV Mass 2D142.7 g67 - 162 gBon Secours Mercy HealthLV Mass 2D Index78 g/m243 - 95 g/m2[facility] HealthLV RWT Ratio0.38[facility] HealthLVIDd4.7 cm3.9 - 5.3 cmBon Secours Mercy HealthLVIDd Index2.57 cm/m2 [facility] HealthLVIDs3.2 cmBon [facility]ours Mercy HealthLVIDs Index1.75 cm/m2 [facility] HealthLVOT Area2.8 cm2Bon [facility] Mercy HealthLVOT Diameter1.9 cmBon Secours Mercy HealthLVOT Mean Jbtcyufb0mkGfWum Secours Mercy HealthLVOT Peak Niqiqzfb7viPtXin [facility] Mer[facility] HealthLVOT Peak Velocity1 m/sBon Secours Mercy HealthLVOT Stroke Volume Index31.9 mL/m2Bon [facility] HealthLVOT SV 58.4 mlBon Secours Mercy HealthLVOT VTI20.6 cmBon Secours Mercy HealthLVOT:AV VTI Index0.96[facility] HealthLVPWd0.9 cm0.6 - 0.9 cmBon Secours Mercy HealthMV A Velocity0.66 m/sBon [facility]ours Mercy HealthMV Area by VTI2.2 cm2[facility] Secisabel [facility] Hospitalcésar HealthMV E Velocity0.51 m/sBon [facility]ours Mercy HealthMV E Wave Deceleration Egns123 msCobalt Rehabilitation [facility]) Hospital Secisabel Mercy HealthMV E/A0.77[facility]cy HealthMV Max Velocity0.7 m/sBon [facility]ours Mercy HealthMV Mean Wfrfelgt5fdWxGkc Secisabel [facility] HealthMV Mean Velocity0.6 m/sBon [facility]ours [facility]cy HealthMV Peak Rzyzjbsb0owLlZbi Secisabel [facility] Hospitaly HealthMV VTI26.5 cmRiverside Health System Health MV:LVOT VTI Index1.29[facility] Secours Mercy HealthPV Max Velocity1 m/sBon Secisabel Mercy HealthPV Peak Sfqegeut7rnExQvd Secisabel [facility] Hospitaly HealthRA Area 4C11.5 cm2[facility] Secisabel [facility] Hospitaly HealthRA Brjzzg71 mlCobalt Rehabilitation [facility] Secisabel Mercy HealthRA Volume Index A4C13 mL/m2[facility] Hospitalisabel [facility] Hospitaly HealthRV Basal Dimension3.3 cmCarilion Cliniccésar HealthRV Free Wall Peak S'10.2 cm/sBon Secisabel [facility] HealthTAPSE1.5 cmAbnormal1.7 cmCobalt Rehabilitation [facility]) Hospital Secisabel [facility] Hospitaly HealthLeft Ventricle: Normal left ventricular systolic function. EF by 2D Simpsons Biplane is 54%. Left ventricle size is normal. Normal wall thickness. Normal wall motion. Normal diastolic function. Right Ventricle: Right ventricle size is normal. Normal systolic function. TDI systolic excursion is normal. RV Free Wall Peak S' is 10.2 cm/s. Mitral Valve: Mild prolapse of the anterior leaflet noted. Moderate to severe regurgitation with an eccentrically directed jet and may underestimate severity. Recommend CARY. Pericardium: There is evidence of epicardial fat. No pericardial effusion. Extracardiac: Pleural effusion present. Image quality is adequate. Left Ventricle Normal left ventricular systolic function. EF by 2D Simpsons Biplane is 54%. Left ventricle size isnormal. Normal wall thickness. Normal wall motion. Normal diastolic function. Right Ventricle Right ventricle size is normal. Normal systolic function. TDI systolic excursion is normal. RV FreeWall Peak S' is 10.2 cm/s. Left Atrium Left atrium size is normal. Right Atrium Right atrium size is normal. IVC/SVC IVC diameter is normal or and decreases greater than 50% during inspiration; therefore the estimated right atrial pressure is normal (~3 mmHg). IVC size is normal. Mitral Valve Valve structure is normal. Mild prolapse of the anterior leaflet noted. Moderate to severe regurgitation with an eccentrically directed jet and may underestimate severity. Recommend CARY. No stenosis noted. Tricuspid Valve Valve structure is normal. Trace regurgitation. No stenosis noted. Unable to assess RVSP due to inadequate or insignificant tricuspid regurgitation. Aortic Valve Trileaflet valve. No regurgitation. No stenosis. Pulmonic Valve The pulmonic valve visualization is suboptimal but appears to be functioning normally. Physiologically normal regurgitation. No stenosis noted. Ascending Aorta Normal sized aortic root and ascending aorta. Pericardium There is evidence of epicardial fat. No pericardial effusion. Septum No interatrial shunt visualized with color Doppler. Extracardiac Pleural effusion present. Study Details Image quality: adequate. The view(s) performed were parasternal, apical, subcostal and suprasternal. Color flow Doppler was performed and pulse wave and/or continuous wave Doppler was performed. No contrast was given.[facility] CV CPASaint Luke's [facility] InstituteRadiology Study observation (narrative)[facility] InstituteFORMERLY [facility], [facility] 12 LeadOrdered By: Jatinder Vega on 98-80-9876Awttxm Pawa395LSAJgaKRAFTWERK Phone: [phone] Wljw93pwzihicJjsNeighbor.ly Phone: [phone]-R Btlhbavs530 mnCritique^It Phone: [phone]-T Fwkdbsze615 [facility] bVisual Phone: [phone] Brpkyzwm73 [facility] bVisual Phone: [phone] Calculation (Bazett)412 [facility] bVisual Phone: [phone] Orba5jzxlnczUlv bVisual Phone: [phone] Agrs7nataqemBsy bVisual Phone: [phone] Olmt546KBSYcm bVisual Phone: [phone] bVisual Phone: [phone] 12 Leadon [id number] sinus rhythm Possible Left atrial enlargement Low voltage QRS Borderline ECG When compared with ECG of 17-Nov-2003 10:51, MANUAL COMPARISON REQUIRED PREVIOUS ECG IS INCOMPATIBLEMcLean SouthEast, - 10/21/2024 Normal sinus rhythm Possible Left atrial enlargement Low voltage QRS Borderline ECG When compared with ECG of 17-Nov-2003 10:51, MANUAL COMPARISON REQUIRED PREVIOUS ECG IS INCOMPATIBLE [facility] HealthEKG 12 leadon 54-11-6153Gifvnm Tktt46BEWHuw [facility]ours Mercy HealthP Twsl19oxcixiwXhh [facility] HealthP-R Fpwqtvfd378 msBon Secours Mercy HealthQ-T Whgzjgtz869 msBon Secours Mercy HealthQRS Psmxsmoo93 msBon Secours Mercy HealthQTc Calculation (Bazett)442 msBon Secours Mercy HealthR [place] 4degreesBon Secours Mercy HealthT Ylst5nmnzumpBlk Sec[facility] Ventricular Afol65SXJIgw [facility] HealthNormal sinus rhythm Low voltage QRS Nonspecific T wave abnormality Abnormal ECG When compared with ECG of 17-Nov-2003 10:51, MANUAL COMPARISON REQUIRED PREVIOUS ECG IS INCOMPATIBLEMcLean [facility], - 10/21/2024 Normal sinus rhythm Low voltage QRS Nonspecific T wave abnormality Abnormal ECG When compared with ECG of 17-Nov-2003 10:51, MANUAL COMPARISON REQUIRED PREVIOUS ECG IS INCOMPATIBLE [facility] Hospitaly HealthCobalt Rehabilitation [facility] Hospital Sec[facility] Mercy HealthFluid Cell Count and Diffon [id number] (U)HazyNormalMerMadera Community HospitalComment on above:Performed By: #### FLTP, FLLD, FLDCT, FLQPH, FLGLU #### [facility] [address] [place] [address] Wall Steamer: Jas Hernandez MD #### ADAPF #### [facility] [employer] [address] [place] [address] Wall Steamer: Vin Zavala MDBody Fluid Ttl Czwgbtgqt6866 cells/uLNormalLakehealth Beachwood Medical CenterComment on above:Result Comment: No normal range established for fluids.Performed By: #### FLTP, FLLD, FLDCT, FLQPH, FLGLU #### [facility] [place] [address] Wall Steamer: Jas Hernandez MD #### ADAPF #### [facility] [address] [place] [address] Wall Steamer: Leandro Lott CheckNone [facility] Medical CenterComment on above:Performed By: #### FLTP, FLLD, FLDCT, FLQPH, FLGLU #### [facility] [address] [place] [address] Wall Steamer: Jas Hernandez MD #### ADAPF #### [facility] [address] [place] [address] Wall Steamer: Josy Lott (U)[facility] HospitalComment on above:Performed By: #### FLTP, FLLD, FLDCT, FLQPH, FLGLU #### [facility] [address] [place] [address] Wall Steamer: Jas Hernandez MD #### ADAPF #### [facility] [address] [place] [address] Wall Steamer: Vin Zavala MDLymphocytes/100 WBC (Bld)53 %[facility] West CampusComment on above:Result Comment: No normal range established for fluids.Performed By: #### FLTP, FLLD, FLDCT, FLQPH, FLGLU #### [facility] [address] [place] [address] Wall Steamer: Jas Hernandez MD #### ADAPF #### [facility] [address] [place] [address] Wall Steamer: SHANNAN Lottono/Macrophage9 %[facility] CampusComment on above:Result Comment: No normal range established for fluids. Performed By: #### FLTP, FLLD, FLDCT, FLQPH, FLGLU #### [facility] [address] [place] [address] Wall Steamer: Jas Hernandez MD #### ADAPF #### [facility] [address] [place] [address] Wall Steamer: Vin Zavala MDNeutrophils/100 WBC (Bld)30 %[facility] CampusComment on above:Result Comment: No normal range established for fluids.Performed By: #### FLTP, FLLD, FLDCT, FLQPH, FLGLU #### [place] [address] Wall Steamer: Jas Hernandez MD #### ADAPF #### [facility] [address] [place] [address] Wall Steamer: FLORINA LottBC (Bld) [#/Vol]0.01 10*6/uLNoSelect Medical Cleveland Clinic Rehabilitation Hospital, AvonComment on above:Result Comment: No normal range established for fluids.Performed By: #### FLTP, FLLD, FLDCT, FLQPH, FLGLU #### [place] [address] Wall Steamer: Jas Hernandez MD #### ADAPF #### [facility] [address] [place] [address] Wall Steamer: Vin Zavala MDGlucose, Body Fluidon [id number] (Body fld) [Mass/Vol]98 mg/dLBon [facility] St. Charles HospitalComment on above:There are no normals for body fluid samples.Glucose,Fluidon 24-12-1483Uvzuzse [Mass/Vol]98 mg/dLTrinity Health System West CampusComment on above:Result Comment: There are no normals for body fluid samples.Performed By: #### FLTP, FLLD, FLDCT, FLQPH, FLGLU #### [facility] [address] [place] [address] Wall Steamer: Jas Hernandez MD #### ADAPF #### [facility] [address] [place] [address] Wall Steamer: Michelle Lott for thoracentesis of Cheston 10-21-2024 Successful ultrasound guided diagnostic left thoracentesis. [facility] Mason Burgos MD - 10/21/2024 PROCEDURE: ULTRASOUNDGUIDED LEFT THORACENTESIS 10/21/2024 HISTORY: ORDERING SYSTEM PROVIDED HISTORY: pleural effusion TECHNOLOGIST PROVIDED HISTORY: pleural effusion Which side should the procedure be performed?->Radiologist Recommendation Does fluid need testing? If yes, please place LAB Orders.->Yes Is the procedure for Diagnostic or Therapeutic reasons?->Diagnostic TECHNIQUE: This procedure was performed by Dameon Fam PA-C under indirect supervision of Dr. Crowder. Informed consent was obtained after a detailed explanation of the procedure including but not limited to risks and benefits of the procedure. The posterior chest was prepped and draped using universal protocol and sterile barrier technique. Sterile barrier technique was used, including cap, mask, sterile gloves, sterile drapes, hand hygiene and 2% chlorhexidine for cutaneous antisepsis were followed. While the patient was seated upright, after localizing, marking and anesthetizing the posterior left lower chest with one percent lidocaine. A 5 Hebrew Yueh needle was advanced into the pleural effusion under ultrasound guidance. A saved sonographic image demonstrates safe tract access. The catheter was advanced and the needle was removed. The catheter was connected to a Vacutainer bottle and 500 mL of naty fluidwere drained. Postprocedural ultrasound demonstrated no significant residual fluid. The catheter was removed and the site was dressed appropriately. A sample was sent for laboratory analysis. Estimated blood loss was minimum. The patient tolerated the procedure well and left the department in stable condition. FINDINGS: A total of 500 mL of naty fluid was removed. IMPRESSION: Successful ultrasound guided diagnostic left thoracentesis. [facility] HospitalRadiology Study observation (narrative)[facility] Women'S HospitalGuidance for thoracentesis of ChestOrdered By: Mason Crowder on [id number] [facility] Work Phone: Laboratory - Specimen informationon [id number] type Nom (Spec).THORACENTESIS FLUIDBon [facility] St. Charles HospitalComment on above: LEFTLactate Dehydrog, Flon [id number] - Jgcjo593 U/LNormalLakehealth Beachwood Medical CenterComment on above:Result Comment: There are no normals for body fluid samples.Performed By: #### FLTP, FLLD, FLDCT, FLQPH, FLGLU #### [facility] [place], [place] [id number] Wall Steamer: Jas Hernandez MD #### ADAPF #### [facility] [address] [place] [address] Wall Steamer: Vin Zavala MDLactate Dehydrogenase, Body Fluidon [id number] Lactate to pyruvate reaction (Body fld) [Catalytic activity/Vol]212 U/LBon [facility] HospitalComvon [facility] on above:There are no normals for body fluid samples.No Panel Informationon 30-06-1173Teo [facility] HospitalPH, Quant, Fluidon [id number],Quant-Fluid8.0NormalLakehealth Beachwood Medical CenterComment on above:Result Comment: There are no normals for body fluid samples.Performed By: #### FLTP, FLLD, FLDCT, FLQPH, FLGLU #### [facility] [address] [place], [place] [id number] Wall Steamer: Jas Hernandez MD #### ADAPF #### [facility] [address] [place] [address] Wall Steamer: OCTAVIO Lottrotein, Body Fluidon 21-26-6786Qmeokqq (Body fld) [Mass/Vol]3.9 g/dLBon Secours Mercy HealthComment on above:There are no normals for body fluid samples.Specimen type Nom (Spec).THORACENTESIS FLUIDInova Women'S HospitalComment on above:[facility] Protein,Tot,Fluidon 47-40-3811Skf Prot. Conc.3.9 g/dLNoSelect Medical Cleveland Clinic Rehabilitation Hospital, AvonComment on above:Result Comment: There are no normals for body fluid samples.Performed By: #### FLTP, FLLD, FLDCT, FLQPH, FLGLU #### [facility] [address] [place] [address] Wall Steamer: Jas Hernandez MD #### ADAPF #### [facility] [address] [place], [place] [id number] Wall Steamer: Vin Zavala MDType of Specimen.THORACENTESIS [facility] HospitalComment on above:Result Comment: LEFTPerformed By: #### FLTP, FLLD, FLDCT, FLQPH, FLGLU #### [facility] [address] [place] [address] Wall Steamer: Jas Hernandez MD #### ADAPF #### [facility] [address] [place], [place] [id number] Wall Steamer: Vin Zavala [facility], Body Fluidon 70-89-5701kT, Euvay9KywInova Women'S HospitalComment on above:There are no normals for body fluid samples. Specimen type Nom (Spec).THORACENTESIS [facility] PatrickComment on above:[facility] Memorial Hospitalcésar TrihealthAPTTon 19-30-5621kRDB Coag (Bld) [Time]32.2 s In[facility] Women'S HospitalComment on above: IV Heparin Therapy Range: 66.0-92.0 sec aPTT Coag (Bld) [Time]32.2 pGqcqgi79.0-36.5[facility] Comment on above:Result Comment: IV Heparin Therapy Range: 66.0-92.0 secPerformed By: #### TROPI #### [facility] [address] [place] [address] Wall Steamer: Sherry Ocampo 24-19-4306Jfokk gap [Moles/Vol]12 mmol/L9 - 16 mmol/LBon [facility] HealthCalcium [Mass/Vol]9.3 mg/dL8.6 - 10.4 mg/dL Bon [facility] HealthChloride [Moles/Vol]101 mmol/L98 - 107 mmol/LBon [facility] HealthCO2 [Moles/Vol]23 mmol/L20 - 31 mmol/LBon [facility] Health Creatinine [Mass/Vol]0.6 mg/dL0.6 - 0.9 mg/dLBon [facility] HospitalEst, Glom Filt Rate- PINFBon [facility] HospitalComment on above: These results are not intended for use in patients <18 years of age. eGFR results are calculated without a race factor using the 2020 CKD-EPI equation. Careful clinical correlation is recommended, particularly when comparing to results calculated using previous equations. The CKD-EPI equation is less accurate in patients with extremes of muscle mass, extra-renal metabolism of creatine, excessive creatine ingestion, or following therapy that affects renal tubular secretion. Glucose [Mass/Vol]101 mg/jROnue11 - 99 mg/dLBon [facility] HealthPotassium [Moles/Vol]4.1 mmol/L3.7 - 5.3 mmol/LBon [facility] HospitalSodium [Moles/Vol] 136 mmol/L136 - 145 mmol/LBon [facility] HealthUrea nitrogen [Mass/Vol]16 mg/dL8 - 23 mg/dLBon [facility] HospitalBasic Metabolic Profon 65-21-4723Zzjpu gap [Moles/Vol]12 mmol/LNormal9-16L[facility]wood Medical CenterComment on above:Performed By: #### TRISHI #### [facility] [address] [place] [address] Wall Steamer: KAR Ocampoalcium [Mass/Vol]9.3 mg/dLNormal8.6-10.4L[facility] Beachwood Medical CenterComment on above:Performed By: #### TROPI #### [facility] [address] [place] [address] Wall Steamer: KAR Ocampohloride [Moles/Vol]101 mmol/DGenwvn46-680VlebqLakehealth Beachwood Medical CenterComment on above:Performed By: #### TROPI #### [facility] [address] [place] [address] Wall Steamer: Jas Hernandez MDCO2 [Moles/Vol]23 mmol/UNvrffo28-05TgshsLakehealth Beachwood Medical CenterComment on above:Performed By: #### TROPI #### [facility] [address] [place] [address] Wall Steamer: KAR Ocamporeatinine [Mass/Vol]0.6 mg/dLNormal0.6-0.9L[facility] Beachwood Medical CenterComment on above:Performed By: #### TROPI #### [facility] [address] [place] [address] Wall Steamer: Jas Hernandez MDGFR/1.73 sq M.predicted among non-blacks MDRD (S/P/Bld) [Vol rate/Area]mL/min/{1.73_m2}Normal>60L[facility] Beachwood Medical CenterComment on above:Result Comment: These results are not intended for use in patients <18 years of age. eGFR results are calculated without a race factor using the 2020 CKD-EPI equation. Careful clinical correlation is recommended, particularly when comparing to results calculated using previous equations. The CKD-EPI equation is less accurate in patients with extremes of muscle mass, extra-renal metabolism of creatine, excessive creatine ingestion, or following therapy that affects renal tubular secretion.Performed By: #### TROPI #### [facility] [address] [place] [address] Wall Steamer: Jas Hernandez MDGlucose [Mass/Vol]101 mg/tPMpiw34-95YuspiSanta Teresita HospitalComment on above:Performed By: #### TROPI #### [facility] [address] [place] [address] Wall Steamer: OCTAVIO Ocampootassium [Moles/Vol]4.1 mmol/LNormal3.7-5.3 [facility] Medical CenterComment on above:Performed By: #### TROPI #### [address] [address] Wall Steamer: MARITZA Ocampoodium [Moles/Vol]136 mmol/ZRyiyax729-709GyjrrLakehealth Beachwood Medical CenterComment on above:Performed By: #### TROPI #### [address] [address] Wall Steamer: Jas Hernandez MDUrea nitrogen [Mass/Vol]16 mg/dLNormal8-23L[facility]wood Medical CenterComment on above:Performed By: #### TROPI #### [address] [address] Wall Steamer: Jas Hernandez MDBrain Natri. Peptideon 45-94-3765Vxbvsburjef peptide B (Bld) [Mass/Vol]232 pg/mLHigh0-125[facility] Comment on above:Performed By: #### TROPI #### [address] [address] Wall Steamer: Jas Hernandez MDBrain Natriuretic Peptideon 10-20-2024 Natriuretic peptide B (Bld) [Mass/Vol]232 pg/mLHigh0 - 125 pg/mLBon Secours Wooster Community HospitalCBC with Auto Differentialon 51-75-2050Flxffxjev (Bld) [#/Vol]0.04 10*3/uLBon [facility] HealthBasophils/100 WBC (Bld)0 %0 - 2 %[facility] HospitalEosinophils (Bld) [#/Vol]0.05 10*3/uLBon [facility]ours [facility] Eosinophils/100 WBC (Bld)0 %Low1 - 4 %[facility] HealthErythrocyte distribution width (RBC) [Ratio]12.1 %11.8 - 14.4 %[facility] Hematocrit (Bld) [Volume fraction]39.4 %36.3 - 47.1 %[facility] Hemoglobin (Bld) [Mass/Vol]12.9 g/dL11.9 - 15.1 g/dLBon [facility] Immature granulocytes (Bld) [#/Vol]0.07 10*3/uLBon [facility] HospitalImmature granulocytes/100 WBC (Bld)1 %Dgvk1JgcInova Women'S HospitalInterpretation and review of laboratory resultsAbnormalInova Women'S HospitalLymphocytes/100 WBC (Bld)13 %Low24 - 43 %[facility] Women'S HospitalLymphocytes/100 WBC (Bld)1.48 %[facility] HealthcareH (RBC) [Entitic mass]29.3 pg25.2 - 33.[address] [facility] HospitalHC (RBC) [Mass/Vol]32.7 g/dL28.4 - 34.8 g/dLBon [facility] HospitalMCV (RBC) [Entitic vol]89.3 fL82.6 - 102.9 fLInova Women'S Hospital Monocytes/100 WBC (Bld)12 %3 - 12 %[facility] HospitalMonocytes/100 WBC (Bld)1.35 %HighInova Women'S HospitalNeutrophils/100 WBC (Bld)74 %High36 - 65 %[facility] HospitalNucleated RBC/100 WBC (Bld) [Ratio]0 %0.0 per 100 WBC [facility] Women'S HospitalPlatelet mean volume (Bld) [Entitic vol]9 fL8.1 - 13.5 fLInova Women'S HospitalPlatelets (Bld) [#/Vol]427 10*3/uLBon [facility] HospitalRBC (Bld) [#/Vol]4.41 10*6/uL3.95 - 5.11 m/uLInova Women'S Hospital Segmented neutrophils/100 WBC (Bld)8.59 %HighInova Women'S HospitalWBC other (Bld) [#/Vol]11.6HBon Secours Health System with Diffon 61-33-1126Fmq. Basophil0.04 k/uLNormal0.00-0.20L[facility] Medical CenterComment on above:Performed By: #### BMP, BNP, DIME, TROPI, CDP #### [facility] [address] [place] [address] Wall Steamer: Drew Ocampo.Imm.Granulocyte0.07 k/uLNormal0.00-0.30MerMadera Community HospitalComment on above:Performed By: #### BMP, BNP, DIME, TROPI, CDP #### [facility] [address] [place] [address] Wall Steamer: Drew Ocampo.Neutrophil (Seg)8.59 k/uLHigh1.50-8.10L[facility] Medical CenterComment on above:Performed By: #### BMP, BNP, DIME, TROPI, CDP #### [facility] [address] [place] [address] Wall Steamer: Jas Hernandez MDBasophils/100 WBC (Bld)0 %Normal0-2[facility] Medical CenterComment on above:Performed By: #### BMP, BNP, DIME, TROPI, CDP #### [facility] [address] [place] [address] Wall Steamer: TAMI Ocampoosinophils (Bld) [#/Vol]0.05 10*3/uLNormal 0.00-0.44[facility] Medical CenterComment on above:Performed By: #### BMP, BNP, DIME, TROPI, CDP #### [facility] [address] [place] [address] Wall Steamer: TAMI Ocampoosinophils/100 WBC (Bld)0 %Low1-4[facility] Medical CenterComment on above:Performed By: #### BMP, BNP, DIME, TROPI, CDP #### [facility] [address] [place] [address] Wall Steamer: Jas Hernandez MDErythrocyte distribution width (RBC) [Ratio]12.1 %Jgedaz88.8-14.4[facility] Medical CenterComment on above:Performed By: #### BMP, BNP, DIME, TROPI, CDP #### [facility] [address] [place] [address] Wall Steamer: Jas Hernandez MDHematocrit (Bld) [Volume fraction]39.4 %Normal 36.3-47.1MSanta Teresita HospitalComment on above:Performed By: #### BMP, BNP, DIME, TROPI, CDP #### [facility] [address] [place] [address] Wall Steamer: Jas Hernandez MDHemoglobin (Bld) [Mass/Vol]12.9 g/dLNormal 11.9-15.1MSanta Teresita HospitalComment on above:Performed By: #### BMP, BNP, DIME, TROPI, CDP #### [facility] [address] [place] [address] Wall Steamer: Jas Hernandez MDImmature granulocytes/100 WBC (Bld)1 %Bdar2YriyhLakehealth Beachwood Medical CenterComment on above:Performed By: #### BMP, BNP, DIME, TROPI, CDP #### [facility] [address] [place] [address] Wall Steamer: Jas Hernandez MDLymphocytes (Bld) [#/Vol]1.48 10*3/uLNormal 1.10-3.70[facility] Medical CenterComment on above:Performed By: #### BMP, BNP, DIME, TROPI, CDP #### [facility] [address] [place] [address] Wall Steamer: Arturo Ocampomphocytes/100 WBC (Bld)13 %Dkv69-41GtcrbLakehealth Beachwood Medical CenterComment on above:Performed By: #### BMP, BNP, DIME, TROPI, CDP #### [facility] [address] [place] [address] Wall Steamer: SHANNAN OcampoCH (RBC) [Entitic mass]29.3 zkHcglza22.2-33.5 [facility] CenterComment on above:Performed By: #### BMP, BNP, DIME, TROPI, CDP #### [address] [address] Wall Steamer: SHANNAN OcampoCHC (RBC) [Mass/Vol]32.7 g/hDXjfrzc85.4-34.8 [facility] CenterComment on above:Performed By: #### BMP, BNP, DIME, TROPI, CDP #### [facility] [address] [place] [address] Wall Steamer: SHANNAN OcampoCV (RBC) [Entitic vol]89.3 aLNgmwde59.6-102.9 [facility] CenterComment on above:Performed By: #### BMP, BNP, DIME, TROPI, CDP #### [address] [address] Wall Steamer: SHANNAN Ocampoonocytes (Bld) [#/Vol]1.35 10*3/uLHigh0.10-1.20 [facility] CenterComment on above:Performed By: #### BMP, BNP, DIME, TROPI, CDP #### [facility] [address] [place] [address] Wall Steamer: SHANNAN Ocampoonocytes/100 WBC (Bld)12 %Normal3-12[facility] Medical CenterComment on above:Performed By: #### BMP, BNP, DIME, TROPI, CDP #### [facility] [address] [place] [address] Wall Steamer: Yocasta Ocampo (Seg)74 %Wheh35-97GgoatLakehealth Beachwood Medical CenterComment on above:Performed By: #### BMP, BNP, DIME, TROPI, CDP #### [facility] [address] [place] [address] Wall Steamer: MALIKA Ocampo Automated0.0 per 100 WBCNormal0.0L[facility] Medical CenterComment on above:Performed By: #### BMP, BNP, DIME, TROPI, CDP #### [facility] [address] [place] [address] Wall Steamer: Erika Ocampo mean volume (Bld) [Entitic vol]9.0 fL Normal8.1-13.5[facility] Medical CenterComment on above:Performed By: #### BMP, BNP, DIME, TROPI, CDP #### [facility] [address] [place] [address] Wall Steamer: Vipul Ocampo (Bld) [#/Vol]427 10*3/nFBgmjqq302-416 [facility] CenterComment on above:Performed By: #### BMP, BNP, DIME, TROPI, CDP #### [facility] [address] [place] [address] Wall Steamer: ELIA Ocampo (Bld) [#/Vol]4.41 10*6/uLNormal3.95-5.11 [facility] CenterComment on above:Performed By: #### BMP, BNP, DIME, TROPI, CDP #### [facility] [address] [place] [address] Wall Steamer: CIARRA Ocampo (Bld) [#/Vol]11.6 10*3/uLHigh3.5-11.3[facility] Medical CenterComvon [facility] on above:Performed By: #### BMP, BNP, DIME, TROPI, CDP #### [facility] [address] [place], [place] [phone] Wall Steamer: Jas Hernandez MDD-Dimer Teston [id number]-Dimer Test4.45 ug/mL FEUHigh0.00-0.57[facility] Medical CenterComvon [facility] on above:Result Comment: When combined with a low clinical probability, a D dimer value of <0.50 ug/mL FEU is considered negative for DVT and PE (negative predictive value of 98%, sensitivity of 97%). If this test is not being used to help rule out DVT and PE, then the following reference range should be utilized: 0.00 - 0.57 ug/mL FEU. The D-Dimer assay is intended for use as an aid in the diagnosis of venous thromboembolism (DVT and PE) and the results should be interpreted in conjunction with the patient's medical history, clinical presentation, and other findings. Elevated levels of D-dimer activity can be seen in any state of coagulation activation and is not recommended in patients with therapeutic dose anticoagulant therapy for >24 hours, fibrinolytic therapy within the previous 7 days, trauma or surgery within the previous 4 weeks, disseminated malignancies, aortic aneurysm, sepsis, severe infections, pneumonia, severe skin infections, liver cirrhosis, advanced age, coronary disease, diabetes, and . A very low percentage of patients with DVT may yield D-dimer results below the cutoff of 0.5 ug/mL FEU. This is known to be more prevalent in patients with distal DVT.Performed By: #### TROPI #### [facility] [address] [place], [place] [phone] Wall Steamer: MARICARMEN Ocampo-Dimer, Quantitativeon 30-15-0937Wdnlql D-dimer FEU (PPP) [Mass/Vol]4.45HighInova Women'S HospitalComvon [facility] on above: When combined with a low clinical probability, a D dimer value of <0.50 ug/mL FEU is considered negative for DVT and PE (negative predictive value of 98%, sensitivity of 97%). If this test is not being used to help rule out DVT and PE, then the following reference range should be utilized: 0.00 - 0.57 ug/mL FEU. The D-Dimer assay is intended for use as an aid in the diagnosis of venous thromboembolism (DVT and PE) and the results should be interpreted in conjunction with the patient's medical history, clinical presentation, and other findings. Elevated levels of D-dimer activity can be seen in any state of coagulation activation and is not recommended in patients with therapeutic dose anticoagulant therapy for >24 hours, fibrinolytic therapy within the previous 7 days, trauma or surgery within the previous 4 weeks, disseminated malignancies, aortic aneurysm, sepsis, severe infections, pneumonia, severe skin infections, liver cirrhosis, advanced age, coronary disease, diabetes, and . A very low percentage of patients with DVT may yield D-dimer results below the cutoff of 0.5 ug/mL FEU. This is known to be more prevalent in patients with distal DVT. Interpretation and review of laboratory resultsAbnoCuster Regional HospitalNo Panel Informationon [id number] Halifax Regional HospitalInterpretation and review of laboratory resultsAbnoSt. Mary's Healthcare Center 32-26-8594NWW Coag (PPP) [Relative time]1.2 {INR}NormalLakehealth Beachwood Medical CenterComvon [facility] on above:Result Comment: Therapeutic Range: Moderate Anticoagulant Intensity: INR = 2.0-3.0 High Anticoagulant Intensity: INR = 2.5-3.5Performed By: #### TROPI #### [facility] [address] [place], [place] [phone] Wall Steamer: MILLICENT Ocampo Coag (PPP) [Time]15.6 sHigh11.7-14.9[facility] Medical CenterComment on above:Performed By: #### TROPI #### [facility] [address] [place], [place] [phone] Wall Steamer: Telma Ocampoime-INRon 92-80-1579BHB Coag (PPP) [Relative time]1.2 {INR}[facility] HospitalComment on above: Therapeutic Range: Moderate Anticoagulant Intensity: INR = 2.0-3.0 High Anticoagulant Intensity: INR = 2.5-3.5 Interpretation and review of laboratory resultsAbnormalBon [facility] PT Coag (PPP) [Time]15.[address] [facility] HospitalTroponinon 10-20-2024 Troponin I.cardiac High sensitivity method [Mass/Vol]8 ng/L0 - 14 ng/LBon [facility] HospitalComment on above:High Sensitivity Troponin values cannot be compared with other Troponin methodologies.Bon [facility] HospitalTroponin, High Sens8 ng/LNormal0-14[facility] Medical CenterComment on above:Result Comment: High Sensitivity Troponin values cannot be compared with other Troponin methodologies.Performed By: #### TROPI #### [facility] [address] [place] [phone] Wall Steamer: Jorge A Ocampo I.cardiac High sensitivity method [Mass/Vol]7 ng/L0 - 14 ng/LBon [facility] HospitalComment on above:High Sensitivity Troponin values cannot be compared with other Troponin methodologies.Troponin, High Sens7 ng/LNormal0-14[facility] CenterComvon [facility] on above:Result Comment: High Sensitivity Troponin values cannot be compared with other Troponin methodologies.Performed By: #### TROPI #### [facility] [address] [phone] Wall Steamer: TUCKER Ocampo CHEST (2 VW)on [id number] CHEST (2 VW) EXAMINATION: TWO XRAY VIEWS OF THE CHEST 10/19/2024 4:29 pm COMPARISON: None. HISTORY: ORDERING SYSTEM PROVIDED HISTORY: Left lower lobe pulmonary infiltrate TECHNOLOGIST PROVIDED HISTORY: Persistent fevers/chills after abx Reason for Exam: Persistent fevers/chills after abx, continued chest heaviness, right side feel worse than left FINDINGS: There is a moderate left pleural effusion with apparent left basal atelectasis. There is cardiomegaly. Lungs otherwise are clear. Bony structures are unremarkable. IMPRESSION: 1. Moderate left pleural effusion with apparent left basal atelectasis. 2. Cardiomegaly. Interpreted by: Josh Schmitt MD Signed by: Josh Schmitt MD 10/20/24 Final resultNormalMercy Community Memorial HospitalXR Chest 2 Viewson . Moderate left pleural effusion with apparent left basal atelectasis. 2. Cardiomegaly. LORI AGUAYO CONSOLIDATEDEXAMINATION: TWO XRAY VIEWS OF THE CHEST 10/19/2024 4:29 pm COMPARISON: None. HISTORY: ORDERING SYSTEM PROVIDED HISTORY: Left lower lobe pulmonary infiltrate TECHNOLOGIST PROVIDED HISTORY: Persistent fevers/chills after abx Reason for Exam: Persistent fevers/chills after abx, continued chest heaviness, right side feel worse than left FINDINGS: There is a moderate left pleural effusion with apparent left basal atelectasis. There is cardiomegaly. Lungs otherwise are clear. Bony structures are unremarkable. [facility] Josh Trent MD - 10/20/2024 EXAMINATION: TWO XRAY VIEWS OF THE CHEST 10/19/2024 4:29 pm COMPARISON: None. HISTORY: ORDERING SYSTEM PROVIDED HISTORY: Left lower lobe pulmonary infiltrate TECHNOLOGIST PROVIDED HISTORY: Persistent fevers/chills after abx Reason for Exam: Persistent fevers/chills after abx, continued chest heaviness, right side feel worse than left FINDINGS: There is a moderate left pleural effusion with apparent left basal atelectasis. There is cardiomegaly. Lungs otherwise are clear. Bony structures are unremarkable. IMPRESSION: 1. Moderate left pleural effusion with apparent left basal atelectasis. 2. Cardiomegaly. [facility]S HospitalXR Chest 2 ViewsOrdered By: Josh Schmitt on [id number] [facility] Work Phone: XR Chest 2 Viewson [id number] Study observation (narrative)[facility] WITH AUTO DIFFERENTIALon [id number] ABSOLUTE COUNT (10*3/UL) BY AUTOMATED COUNT0.1 10*3/uLNormal 0.0-0.2Pro[facility] Rita'S HospitalComment on above:Performed By: #### CBCA #### [facility] ([facility]) [address] [place] [address] VIRBASOPHILS RELATIVE PERCENT BY AUTOMATED COUNT0.4 %Normal [facility] HospitalComment on above:Performed By: #### CBCA #### [facility] ([facility]) [address] [place] [address] VIRCELLAVISION DIFFERENTIAL TYPEAUTOMATED DIFFERENTIALNormal ProMAultman Alliance Community Hospital HospitalComment on above:Performed By: #### CBCA #### [facility] ([facility]) [address] [place] [address] VIREosinophils (Bld) [#/Vol]0.0 10*3/uLNormal0.0-0.4ProCentervilleca Granger HospitalComment on above:Performed By: #### CBCA #### [facility] ([facility]) [address] [place] [address] VIREOSINOPHILS RELATIVE PERCENT BY AUTOMATED COUNT0.1 %Normal [facility] HospitalComment on above:Performed By: #### CBCA #### [facility] ([facility]) [address] [place] [address] VIRErythrocyte distribution width (RBC) [Ratio]13.5 %Normal 11.5-15ProMedica [facility]anger HospitalComment on above:Performed By: #### CBCA #### [facility] ([facility]) [address] [place] [address] VIRHematocrit (Bld) [Volume fraction]43.2 %Acpepa88-49EbtGgiofq Granger HospitalComment on above:Performed By: #### CBCA #### [facility] ([facility]) [address] [place] [address] VIRHemoglobin (Bld) [Mass/Vol]14.8 g/iDGbtxqs16.7-15.5Pro[facility]ica [facility] HospitalComment on above:Performed By: #### CBCA #### [facility] ([facility]) [address] [place] [address] VIRLYMPHOCYTES ABSOLUTE COUNT (10*3/UL) BY AUTOMATED COUNT1.1 10*3/uLNormal1.0-3.5Pro[facility]ica [facility] HospitalComment on above:Performed By: #### CBCA #### [facility] ([facility]) [address] [place] [address] VIRLYMPHOCYTES RELATIVE PERCENT BY AUTOMATED COUNT8.5 %Normal [facility] HospitalComment on above:Performed By: #### CBCA #### [facility] ([facility]) [address] [place] [address] VIRMCH (RBC) [Entitic mass]29.8 fhIuphmq42-22UyfDzddll Brand HospitalComment on above:Performed By: #### CBCA #### [facility] ([facility]) [address] [place] [address] VIRMCHC (RBC) [Mass/Vol]34.2 g/iPApdvcf31-96OrmJrvzsu Brand HospitalComment on above:Performed By: #### CBCA #### [facility] ([facility]) [address] [place] [address] VIRMCV (RBC) [Entitic vol]87 uOZfvkcl20-264AwnGveopi Brand HospitalComment on above:Performed By: #### CBCA #### [facility] ([facility]) [address] [place] [address] VIRMONOCYTES ABSOLUTE COUNT (10*3/UL) BY AUTOMATED COUNT1.0 10*3/uLHigh0.0-0.9ProMed[facility] Brand HospitalComment on above:Performed By: #### CBCA #### [facility] ([facility]) [address] [place] [address] VIRMONOCYTES RELATIVE PERCENT BY AUTOMATED COUNT8.0 %Normal [facility] HospitalComment on above:Performed By: #### CBCA #### [facility] ([facility]) [address] [place] [address] VIRNEUTROPHILS ABSOLUTE COUNT BY AUTOMATED COUNT10.9 10*3/uL High1.5-6.6[facility] Centerca [facility] HospitalComment on above:Performed By: #### CBCA #### [facility] ([facility]) [address] [place] [address] VIRNEUTROPHILS RELATIVE PERCENT BY AUTOMATED COUNT83.0 %Normal [facility] HospitalComment on above:Performed By: #### CBCA #### [facility] ([facility]) [address] [place] [address] VIRPlatelet mean volume (Bld) [Entitic vol]8.7 fLNormal7-12 [facility] HospitalComment on above:Performed By: #### CBCA #### [facility] ([facility]) [address] [place] [address] VIRPlatelets (Bld) [#/Vol]221 10*3/rJHjwmkk168-428VnpImnltx [place] HospitalComment on above:Performed By: #### CBCA #### [facility] ([facility]) [address] [place] [address] VIRRBC COUNT4.96 X10E12/LNormal3.8-5.2PMarymount Hospital Comment on above:Performed By: #### CBCA #### [facility] ([facility]) [address] [place] [address] VIRWBC (Bld) [#/Vol]13.1 10*3/uLHigh4-11[facility] HospitalComment on above:Performed By: #### CBCA #### [facility] ([facility]) [address] [place] [address] VIRCOMPREHENSIVE METABOLIC PANELon 32-14-9142Sbtmdft [Mass/Vol] 4.2 g/dLNormal3.2-5.3POhioHealth [facility]erington [facility] HospitalComment on above:Performed By: #### CMP #### [facility] ([facility]) [address] [place] [address] VIRALP [Catalytic activity/Vol]50 U/JWfwmyl72-651LggPzxpfo Brand HospitalComment on above:Performed By: #### CMP #### [facility] ([facility]) [address] [place] [address] VIRALT [Catalytic activity/Vol]20 U/LNormal<=31[facility] Brand HospitalComment on above:Performed By: #### CMP #### [facility] ([facility]) [address] [place] [address] VIRAnion gap [Moles/Vol]10 mmol/LNormal5-15[facility] Brand HospitalComment on above:Performed By: #### CMP #### [facility] ([facility]) [address] [place] [address] VIRAST [Catalytic activity/Vol]19 U/LNormal<=41[facility] Brand HospitalComment on above:Performed By: #### CMP #### [facility] ([facility]) [address] [place] [address] VIRBilirubin [Mass/Vol]0.7 mg/dLNormal0.3-1.2Pro[facility] Brand HospitalComment on above:Performed By: #### CMP #### [facility] ([facility]) [address] [place] [address] VIRCalcium [Mass/Vol]9.7 mg/dLNormal8.5-10.5[facility] Brand HospitalComment on above:Performed By: #### CMP #### [facility] ([facility]) [address] [place] [address] VIRChloride [Moles/Vol]102 mmol/WMzfrqi58-190HpwGteucn Brand HospitalComment on above:Performed By: #### CMP #### [facility] ([facility]) [address] [place] [address] VIRCO2 [Moles/Vol]25 mmol/OLlwdeq11-90LtjGfawqc [facility] Comment on above:Performed By: #### CMP #### [facility] ([facility]) [address] [place] [address] VIRCreatinine [Mass/Vol]0.53 mg/dLNormal0.40-1.00ProOhio State Health SystemComment on above:Result Comment: METHOD TRACEABLE TO IDMS STANDARDPerformed By: #### CMP #### [facility] ([facility]) [address] [place] [address] VIREGFR (CKD-EPI) NON-RACE DEPENDENT>^90Normal>=60ProOhio State Health SystemComment on above:Result Comment: Reported eGFR is based on the CKD-EPI 2020 equation that does not use a race coefficient.Performed By: #### CMP #### [facility] ([facility]) [address] [place] [address] VIRGlucose [Mass/Vol]114 mg/xQXfko78-02SztQqhcmd [place] HospitalComment on above:Performed By: #### CMP #### [facility] ([facility]) [address] [place] [address] VIRPotassium [Moles/Vol]4.1 mmol/LNormal3.5-5.0ProOhio State Health SystemComment on above:Performed By: #### CMP #### [facility] ([facility]) [address] [place] [address] VIRProtein [Mass/Vol]6.6 g/dLNormal6.0-8.0ProOhio State Health SystemComment on above:Performed By: #### CMP #### [facility] ([facility]) [address] [place] [address] VIRSodium [Moles/Vol]137 mmol/FUidmul737-114JfpNolajt [place] HospitalComment on above:Performed By: #### CMP #### [facility] ([facility]) [address] [place] [address] VIRUrea nitrogen [Mass/Vol]17 mg/dLNormal5-27ProOhio State Health SystemComment on above:Performed By: #### CMP #### [facility] ([facility]) [address] [place] [address] VIRLIPASEon 10-87-7102Trwkzf [Catalytic activity/Vol]10 U/LLow 11-82ProOhio State Health SystemComment on above:Performed By: #### LIPA #### [facility] ([facility]) [address] [place] [address] VIRTROP I, HIGH SENSITIVITY 1 HOURon 64-08-2014SXPKGIBK I, HIGH SENSITIVITY8 ng/LNormal<16[facility] HospitalComment on above:Performed By: #### [email or web address] #### [facility] ([facility]) [address] [place] [address] VIRTROPONIN I, HIGH SENSITIVITY 0 HOURon 74-32-3883PSCMTTSU I, HIGH SENSITIVITY9 ng/LNormal<16ProOhio State Health SystemComment on above: Performed By: #### TNIHS0 #### [facility] ([facility]) [address] [place] [address] VIRXR CHEST 1 VWon 85-33-9435UQ CHEST 1 VWXR CHEST 1 VW History: Chest pressure Technique: A portable single frontal view of the chest was obtained. Comparison: None Findings: The heart size is enlarged. There is effusion and/or infiltrate left lung base. The remaining lung blevins are clear. Impression: Cardiomegaly with minimal left basilar effusion and/or infiltrate. Finalized by Krystle Meza MD on 09/29/2024 5:52 AMNormalProCentervilleca [facility] AND AUTO DIFFon 23-60-2307OUFSTQXW BASOPHIL0.1 X10E9/LNormal0.0-0.2 [facility] HospitalComment on above:Performed By: #### CBCA, CMP, 53300- 1, TSHR, 11275-1 #### [facility] ([id number]) [address], [address] [place], [place] [address]EMQDWDBY NEUTROPHIL4.8 X10E9/LNormal1.5-6.6[facility] Medical CenterComment on above:Performed By: #### CBCA, CMP, 27994-3, TSHR, 06730-6 #### [facility] ([id number]) [address], [address] [place], [place] [address]Wtunsjkrc/100 WBC (Bld)1.0 %NormalRegional Medical Center Comment on above:Performed By: #### CBCA, CMP, 40281-3, TSHR, 81942-6 #### [facility] ([id number]) [address], [address] [place], [place] [address]Clyyvksgnnt (Bld) [#/Vol]0.1 10*3/uLNormal0.0-0.4ProWvumedicine Harrison Community HospitalComment on above:Performed By: #### CBCA, CMP, 64132-0, TSHR, 82983-4 #### [facility] ([id number]) [address] [address] [place], [place] [address]Lybhtyekcpq/100 WBC (Bld)1.4 %NormalRegional Medical Center Comment on above:Performed By: #### CBCA, CMP, 55379-8, TSHR, 21555-0 #### [facility] ([id number]) [address], [address] [place], [place] [address]Rmlljvexfxs distribution width (RBC) [Ratio]13.3 %Normal 11.5-15.0Reg[facility] Medical CenterComment on above:Performed By: #### CBCA, CMP, 17948-7, TSHR, 69661-3 #### [facility] ([id number]) [address], [address] [place], [place] [address]Rmeyomhxvq (Bld) [Volume fraction]46.5 %Xjwwsc25-01EgzWpnaaxWvumedicine Harrison Community HospitalComment on above:Performed By: #### CBCA, CMP, 99108-2, TSHR, 37787-1 #### [facility] ([id number]) [address], [address] [place], [place] [address]Mshbcscbxq (Bld) [Mass/Vol]15.8 g/tBDnss44.7-15.5PTrinity Health SystemComment on above:Performed By: #### CBCA, CMP, 02140-3, TSHR, 11520-8 #### [facility] ([id number]) [address], [address] [place], [place] [address]Bpnuwpiagwp (Bld) [#/Vol]2.1 10*3/uLNormal1.0-3.5PTrinity Health SystemComment on above:Performed By: #### CBCA, CMP, 90913-3, TSHR, 55909-9 #### [facility] ([id number]) [address], [address] [place], [place] [address]Xvxxnbizhfc/100 WBC (Bld)27.4 %NormalOhio State University [facility] Hospital Comment on above:Performed By: #### CBCA, CMP, 78825-6, TSHR, 20501-8 #### [facility] ([id number]) [address], [address] [place], [place] [address]TNE (RBC) [Entitic mass]30.7 xoWyodqd31-69CkrHtqumrWvumedicine Harrison Community HospitalComment on above:Performed By: #### CBCA, CMP, 40640-8, TSHR, 97870-9 #### [facility] ([id number]) [address], [address] [place], [place] [address]SLUV (RBC) [Mass/Vol]34.1 g/tDCowymx62-65JaaVpymzu [facility] HospitalComment on above:Performed By: #### CBCA, CMP, 69125-0, TSHR, 66226-3 #### [facility] ([id number]) [address], [address] [place], [place] [address]NQH (RBC) [Entitic vol]90 gVOkenns00-162OnzBeptzqRegional Medical CenterComment on above:Performed By: #### CBCA, CMP, 42464-7, TSHR, 78924-2 #### [facility] ([id number]) [address], [address] [place], [place] [address]Bbmjofcvk (Bld) [#/Vol]0.7 10*3/uLNormal0-0.9Reg[facility] Medical CenterComment on above:Performed By: #### CBCA, CMP, 54160-9, TSHR, 09395-7 #### [facility] ([id number]) [address], [address] [place], [place] [address]Ywmlovmxr/100 WBC (Bld)8.7 %NormalRegional Medical Center Comment on above:Performed By: #### CBCA, CMP, 57677-7, TSHR, 95186-4 #### [facility] ([id number]) [address], [address] [place], [place] [address]Vrcxhuqlgqw/100 WBC (Bld)61.5 %[facility] Comment on above:Performed By: #### CBCA, CMP, 16038-8, TSHR, 23272-4 #### [facility] ([id number]) [address], [address] [place], [place] [address]Jwrgquei mean volume (Bld) [Entitic vol]8.8 fLNormal7-12 ProMTrumbull Regional Medical CenterComment on above:Performed By: #### CBCA, CMP, 75717- 1, TSHR, 31983-6 #### [facility] ([id number]) [address], [address] [place], [place] [address]Treltovvk (Bld) [#/Vol]217 10*3/dEZotjmm577-919JtqHorgly [facility] HospitalComment on above:Performed By: #### CBCA, CMP, 80012-0, TSHR, 18300-6 #### [facility] ([id number]) [address], [address] [place] [address]BGD COUNT5.16 X10E12/LNormal3.80-5.20ProWvumedicine Harrison Community Hospital Comment on above:Performed By: #### CBCA, CMP, 23860-6, TSHR, 68998-8 #### [facility] ([id number]) [address], [address] [place] [address]CUN (Bld) [#/Vol]7.7 10*3/uLNormal4.0-11.0ProWvumedicine Harrison Community HospitalComment on above:Performed By: #### CBCA, CMP, 40613-0, TSHR, 89295-0 #### [facility] ([id number]) [address], [address] [place] [address]UINKPRHRZVQTY METABOLIC PANELon 45-66-5093Hfeuedb [Mass/Vol]4.2 g/dLNormal3.2-5.3PTrinity Health SystemComment on above:Performed By: #### CBCA, CMP, 14980-3, TSHR, 83891-1 #### [facility] ([id number]) [address], [address] [place] [address]MXN [Catalytic activity/Vol]51 U/ORbvmdc68-706EhzZvkiohWvumedicine Harrison Community HospitalComment on above:Performed By: #### CBCA, CMP, 37846-4, TSHR, 73646-3 #### [facility] ([id number]) [address], [address] [place] [address]XIJ [Catalytic activity/Vol]21 U/LNormal0-31PKindred Healthcare HospitalComment on above:Performed By: #### CBCA, CMP, 06977-4, TSHR, 58555-3 #### [facility] ([id number]) [address], [address] [place], [place] [address]Ojvtn gap [Moles/Vol]6 mmol/LNormal5-15ProWvumedicine Harrison Community HospitalComment on above:Performed By: #### CBCA, CMP, 62442-6, TSHR, 47665-4 #### [facility] ([id number]) [address], [address] [place], [place] [address]WCO [Catalytic activity/Vol]16 U/LNormal0-41Regional Medical CenterComment on above:Performed By: #### CBCA, CMP, 80207-0, TSHR, 58921-4 #### [facility] ([id number]) [address], [address] [place], [place] [address]Dztbbrzgw [Mass/Vol]0.7 mg/dLNormal0.3-1.2PTrinity Health SystemComment on above:Performed By: #### CBCClaudio, CMP, 69491-8, TSHR, 68483-4 #### [facility] ([id number]) [address], [address] [place], [place] [address]Jlvdznx [Mass/Vol]9.4 mg/dLNormal8.5-10.5PTrinity Health SystemComment on above:Performed By: #### CBCA, CMP, 51782-4, TSHR, 11100-9 #### [facility] ([id number]) [address], [address] [place], [place] [address]Ckiozwkw [Moles/Vol]103 mmol/QSsdpdi74-934GxyXppeodWvumedicine Harrison Community HospitalComment on above:Performed By: #### CBCA, CMP, 19931-2, TSHR, 77562-1 #### [facility] ([id number]) [address], [address] [place], [place] [address]SB[address] [Moles/Vol]29 mmol/IElyxrx05-21CntUvichoTrinity Health System Comment on above:Performed By: #### LEENA LINARES, 14749-3, TSHR, 78679-8 #### [facility] ([id number]) [address], [address] [place], [place] [address]Crinxfekkg [Mass/Vol]0.61 mg/dLNormal0.40-1.00Regional Medical CenterComment on above:Result Comment: METHOD TRACEABLE TO IDMS STANDARD Performed By: #### LEENA LINARES, 75200-5, TSHR, 12487-8 #### [facility] ([id number]) [address], [address] [place], [place] [address]xGPZ (CKD-EPI) NON-RACE DEPENDENT>90Normal>59ProWvumedicine Harrison Community HospitalComment on above:Result Comment: Reported eGFR is based on the CKD-EPI 2020 equation that does not use a race coefficient.Performed By: #### LEENA LINARES, 88075-0, TSHR, 07042-7 #### [facility] ([id number]) [address], [address] [place], [place] [address]Iswahsx [Mass/Vol]84 mg/cFFyvtzc26-17MsaActtiyRegional Medical Center Comment on above:Performed By: #### LEENA LINARES, 48388-2, TSHR, 44798-6 #### [facility] ([id number]) [address], [address] [place], [place] [address]Gdbrmlhdb [Moles/Vol]4.0 mmol/LNormal3.5-5.0Regional Medical CenterComment on above:Performed By: #### VIJAY, LEENA, 60417-1, TSHR, 52888-1 #### [facility] ([id number]) [address], [address] [place], [place] [address]Mbiurcd [Mass/Vol]6.8 g/dLNormal6.0-8.0Reg[facility] Medical CenterComment on above:Performed By: #### LEENA LINARES, 07605-4, TSHR, 55459-0 #### [facility] ([id number]) [address], [address] [place] [address]Hxbthq [Moles/Vol]138 mmol/KWzdadk047-007BsxYkccpg [facility] HospitalComment on above:Performed By: #### LEENA LINARES, 53506-2, TSHR, 17592-6 #### [facility] ([id number]) [address], [address] [place], [place] [address]Shuc nitrogen [Mass/Vol]22 mg/dLNormal5-27Reg[facility] Medical CenterComment on above:Performed By: #### LEENA LINARES, 08738-9, TSHR, 16010-8 #### [facility] ([id number]) [address], [address] [place], [place] [address]Qwioi [facility] panelon 06-29-8153Dozpgswbkue [Mass/Vol]230 mg/dLHigh 150-200Regional Medical CenterComment on above:Performed By: #### LEENA LINARES, 14106-4, TSHR, 99094-7 #### [facility] ([id number]) [address], [address] [place], [place] [address]Gcpiynihqzr in HDL [Mass/Vol]81 mg/dLNormal>39ProWvumedicine Harrison Community HospitalComment on above:Result Comment: HDL <40 mg/dL - High Risk HDL > or = 40mg/dL- Desirable HDL >60 mg/dL - Negative Risk Performed By: #### VIJAY, LEENA, 04462-7, TSHR, 27586-5 #### [facility] ([id number]) [address], [facility] [address] [place], [place] [address]Nouwyyrvith in LDL [Mass/Vol]131 mg/dLHigh<130ProWvumedicine Harrison Community HospitalComment on above:Result Comment: LDL <100 mg/dL - Desirable LDL >160 mg/dL - High Risk Performed By: #### CBCA, CMP, 06659-8, TSHR, 36013-2 #### [facility] ([id number]) [address], [address] [place], [place] [address]Rxvfkgofttr in VLDL [Mass/Vol]18 mg/dLNormal0-30ProWvumedicine Harrison Community HospitalComment on above:Performed By: #### CBCA, CMP, 45912-4, TSHR, 27441-1 #### [facility] ([id number]) [address], [address] [place], [place] [address]EYBUJSPNYVA:HDL2.5Vgztdl2.0-5.0Regional Medical CenterComment on above:Performed By: #### VIJAY, CMP, 33934-8, TSHR, 30060-3 #### [facility] ([id number]) [address], [address] [place], [place] [address]Hvsovsmvanng [Mass/Vol]90 mg/bGQlrckd81-485DfsSxmhvb [facility] HospitalComment on above:Performed By: #### CBCA, CMP, 50392-1, TSHR, 54243-5 #### [facility] ([id number]) [address], [address] [place], [place] [address]DJN WITH REFLEXon 25-78-9720MXO8.23 uIU/mLNormal0.49-4.67 [facility] Medical CenterComment on above:Performed By: #### CBCA, CMP, 19116- 1, TSHR, 94623-1 #### [facility] ([id number]) [address], [address] [place], [place] [address]Tnojaru D+Metabolites [Mass/Vol]on 40-08-8766QNMIQEJ D 25 HYD TOT32.9 ng/hUEdnyfz32-113JzpEtxtfe [facility] HospitalComment on above:Result Comment: Vitamin D status 25 [place] Vitamin D Deficiency <20 ng/mL Insufficiency 20-29 ng/mL Sufficiency 30-100 ng/mL Toxicity >100 ng/mL NOTE: A pediatric reference range has not been established by the architectural design lecturer of this kit. The [place] [employer] recommends a Vitamin D level of = or >20ng/mL in infants and children.Performed By: #### CBCA, CMP, 65335-9, TSHR, 64306-5 #### [facility] ([id number]) [address] [place] [address], [address] [place], [place] [address]USN with Auto Differentialon 15-18-8430Uilxzcje Eos #0.10[facility]CY HEALTHAbsolute Lymph #1.80[facility] HEALTHAbsolute [place] # 0.70[facility] HEALTHBasophils (Bld) [#/Vol]0.10 10*3/uLBON SECOURS MERCY HEALTHBasophils/100 WBC (Bld)1 %0 - 2 %[facility] HEALTHEosinophils/100 WBC (Bld)1 %0 - 4 %[facility] HEALTHHematocrit (Bld) [Volume fraction] 45.5 %36 - 46 %[facility] HEALTHHemoglobin (Bld) [Mass/Vol]15.0 g/dL12.0 - 16.0 g/dLBON SECOURS MERCY HEALTHInterpretation and review of laboratory resultsAbnormalBON SECOURS MERCY HEALTHLymphocytes/100 WBC (Bld)25 %24 - 44 %[facility]ITALH (RBC) [Entitic mass]29.4 pg26 - 34 pgBON SECOURS MERCY SUBURB[facility] COMM[facility] & BRENTWOOD HOSPITALHC (RBC) [Mass/Vol]33.0 g/dL31 - 37 g/dLBON SECOURS [facility] EUCL[facility] HOSPITALY HEALTHMCV (RBC) [Entitic vol]88.9 fL80 - 100 fLBON SECOURS MERCY HEALTHMonocytes/100 WBC (Bld)9 %High1 - 7 %[facility] HEALTHPlatelet distribution width (Bld) [Ratio]13.3 %11.5 - 14.9 %[facility] HEALTHPlatelet mean volume (Bld) [Entitic vol]8.1 fL6.0 - 12.0 fLBON SECOURS MERCY HEALTHPlatelets (Bld) [#/Vol] 234 10*3/uLBON SECOURS MERCY HEALTHRBC (Bld) [#/Vol]5.12 10*6/uL4.0 - 5.2 m/uL [facility] HOSPITALY HEALTHSegmented neutrophils/100 WBC (Bld)64 %36 - 66 %[facility] HEALTHSegs Absolute4.70[facility]CY HEALTHWBC (Bld) [#/Vol] 7.4 10*3/uLBON SECOURS CLEVELAND CLINIC EUCLID HOSP[facility]Y HEALTHB[facility] HEALTHComprehensive Metabolic Panelon [id number] [Mass/Vol]4 g/dL3.5 - 5.2 g/dLB[facility] MERCY HEALTHALP [Catalytic activity/Vol]68 U/L35 - 104 U/LB[facility] HEALTHALT [Catalytic activity/Vol]16 U/L5 - 33 U/LB[facility] HEALTHAnion gap [Moles/Vol]9 mmol/L9 - 17 mmol/LBON [facility] HEALTHAST [Catalytic activity/Vol]13 U/LNINF - 32 U/LB[facility] HEALTHBilirubin [Mass/Vol]0.7 mg/dL0.3 - 1.2 mg/dLB[facility] HEALTHCalcium [Mass/Vol]9.4 mg/dL8.6 - 10.4 mg/dLB[facility] HEALTHChloride [Moles/Vol]106 mmol/L98 - 107 mmol/L [facility] HEALTHCO2 [Moles/Vol]25 mmol/L20 - 31 mmol/LB[facility] HEALTHCreatinine [Mass/Vol]0.53 mg/dL0.50 - 0.90 mg/dLBON [facility] GFR/1.73 sq M.predicted MDRD (S/P/Bld) [Vol rate/Area]- PINFBON [facility] ImagingMiss[facility] on above: These results are not intended for use in patients <18 years of age. eGFR results are calculated without a race factor using the 2020 CKD-EPI equation. Careful clinical correlation is recommended, particularly when comparing to results calculated using previous equations. The CKD-EPI equation is less accurate in patients with extremes of muscle mass, extra-renal metabolism of creatine, excessive creatine ingestion, or following therapy that affects renal tubular secretion. Glucose [Mass/Vol]92 mg/dL70 - 99 mg/dLBON [facility] ImagingPotassium [Moles/Vol]4.4 mmol/L3.7 - 5.3 mmol/LBON [facility] ImagingProtein [Mass/Vol] 6.9 g/dL6.4 - 8.3 g/dLBON [facility] ImagingSodium [Moles/Vol]140 mmol/L135 - 144 mmol/LB[facility] ImagingUrea nitrogen [Mass/Vol]19 mg/dL8 - 23 mg/dL [facility] ImagingLipid Panelon [id number] [Mass/Vol]221 mg/dL HighNINF - 200 mg/dLBON [facility] ImagingFreeman Neosho Hospitalment on above: Cholesterol Guidelines: <200 Desirable 200-240 Borderline >240 Undesirable Cholesterol in HDL [Mass/Vol]89 mg/dL40 - PINF mg/dLBON [facility] Comment on above: HDL Guidelines: <40 Undesirable 40-59 Borderline >59 Desirable Cholesterol in LDL [Mass/Vol]121 mg/dL0 - 130 mg/dLBON [facility] Comment on above: LDL Guidelines: <100 Desirable 100-129 Near to/above Desirable 130-159 Borderline >159 Undesirable Direct (measured) LDL and calculated LDL are not interchangeable tests. Cholesterol.total/Cholesterol in HDL [Mass ratio]2.5 {ratio}NINF - 5BON [facility] ImagingInterpretation and review of laboratory resultsAbnormalBON [facility] ARIZONANOBLE PEAK VISIONTriglyceride [Mass/Vol]55 mg/dLNINF - 150 mg/dLBON [facility] ImagingComment on above: Triglyceride Guidelines: <150 Desirable 150-199 Borderline 200-499 High >499 Very high Based on AHA Guidelines for fasting triglyceride, February 2012. No Panel Informationon [id number] [facility] [email or web address] [facility] CENTERTSHon [id number] Qn 1.22 m[IU]/LBON [facility] ARIZONANOBLE PEAK VISIONMG MAMM SCREEN 3D JACQUELINE CADon [id number] MAMM SCREEN 3D JACQUELINE CADPatient: KATLIN CARPENTER Exam Date: 07/17/2022 : 1960 Gender:F Ordering : DR SHAHEED PRIEST Admission #: [id number] Family : Order #: [id number] CLICK HERE TO VIEW EXAM RADIOLOGY REPORT PROCEDURE: MAMMOGRAM SCREENING 3D BILATERAL CAD COMPARISON: MG MAMM SCREEN JACQUELINE W CAD, 2020. MG MAMM SCREEN 3D JACQUELINE CAD, 07/11/2021. INDICATIONS: Calculator Name NCI Breast Cancer Risk Assessment Tool 5 Year Breast Cancer Risk 1.90% Lifetime Breast Cancer Risk 8.90% Personal Breast Cancer No Personal Ovarian Cancer No Treatments None Family Cancers Aunt-paternal with breast cancer at age 40. LOCATION: [facility] BREAST COMPOSITION: Scattered areas fibroglandular density. FINDINGS: DIAGNOSTIC CATEGORY 1--NEGATIVE. NO CHANGE FROM COMPARISON ASSESSMENT. Scattered benign-appearing calcifications are present. Scattered benign-appearing lymph nodes are present. RIGHT BREAST: No significant suspicious finding. LEFT BREAST: No significant suspicious finding. RECOMMENDATIONS: ROUTINE MAMMOGRAM AND CLINICAL EVALUATION IN 12 MONTHS. PLEASE NOTE: A NORMAL MAMMOGRAM DOES NOT EXCLUDE THE POSSIBILITY OF BREAST CANCER. A CLINICALLY SUSPICIOUS PALPABLE LUMP SHOULD BE BIOPSIED. Dictated by: Krystle Black MD on 07/17/2022 at 14:44 Approved by: Krystle Black MD on 07/17/2022 at 14:47[facility] Hepatic Function Panelon 56-28-5373Shulmhm [Mass/Vol]4.3 g/dL3.5 - 5.2 g/dLBON [facility]ALTHS[facility]OUTHER[facility] ARIZONANOBLE PEAK VISIONAlbumin/Globulin [Mass ratio]1.7 {ratio}1.0 - 2.5B[facility]N ARIZONANOBLE PEAK VISIONALP [Catalytic activity/Vol]64 U/L35 - 104 U/LBON [facility] S[facility]THERN ARIZONANOBLE PEAK VISIONALT [Catalytic activity/Vol]15 U/L5 - 33 U/LBON [facility] HEALTHAST [Catalytic activity/Vol]14 U/LNINF - 32 U/LBON [facility] HEALTHBilirubin [Mass/Vol]0.4 mg/dL0.3 - 1.2 mg/dLBON [facility]OSPITAL HEALTHBilirubin.direct [Mass/Vol]0.1 mg/dLNINF - 0.3 mg/dLBON [facility]OSPITAL HEALTHBilirubin.indirect [Mass/Vol]0.3 mg/dL0.0 - 1.0 mg/dLBON HAYWARD HOSPITAL HEALTHProtein [Mass/Vol]6.9 g/dL6.4 - 8.3 g/dLBON CR[facility] ORTHOP[facility]IC CENTERBON SECSHRINERS HOSPITAL HEALTHCREATININEon 23-92-6201Kfhalikhga [Mass/Vol]0.63 mg/dLNormal0.55-1.02[facility] Comment on above:Performed By: #### CREA #### [facility] [address] [address] [address] Christopher BaileyGFR-AF CITIZEN OF [place]>60Normal>=60[facility] CenterComment on above:Performed By: #### CREA #### [facility] [address] [address] [address] Christopher BaileyGFR-NON AF CITIZEN OF [place]>60Normal>=60[facility] CenterComment on above:Performed By: #### CREA #### [facility] [address] [address] [address] Christopher PembertonCT HEAD WO W CONon 75-38-6882VZ HEAD WO W CON\EXAMINATION: CT HEAD WO W CON HISTORY: Weakness of right hand ; pressure sensation on right side of head COMPARISON: No relevant comparison available. TECHNIQUE: Axial images were obtained without and with IV contrast. Dose reduction techniques were achieved by using automated exposure control and/or adjustment of mA and/or kV according to patient size and/or use of iterative reconstruction technique. FINDINGS: BRAIN: No edema, hemorrhage, mass, acute infarction, or inappropriate atrophy. CSF SPACES: No hydrocephalus, subarachnoid hemorrhage, or mass. Appropriate for age. SKULL: No fracture, mass, or other significant visible lesion. SINUSES: No significant mucosal thickening or fluid on the limited views. ORBITS: No appreciable abnormality on the limited views. OTHER: Negative IMPRESSION: 1. Normal examination. Electronically authenticated by: SILVIA RODGERS Date: 2021-12-08 17:06[facility] Vital Signs Date TimeVital SignValuePerforming MhmkbqaexRvmmqrme39-54-9547 10:15-0400 Diastolic blood cvkogzzb17 mm[Hg]Aries Pardo MD Work Phone: [facility]06-23-2025 10:15-0400Heart rate76 /minAries Pardo MD Work Phone: [facility]06-23-2025 10:15-0400 Respiratory rate19 /minAries Pardo MD Work Phone: [facility]06-23-2025 10:15-6011UnX6% (BldA) [Mass fraction]93 %Aries Pardo MD Work Phone: [facility]06-23-2025 10:15-0400Systolic blood mm[Hg]Aries Pardo MD Work Phone: [facility]06-23-2025 08:25-0400Body vdlgubfzcyz82.49 [degF]Aries Pardo MD Work Phone: [facility]06-05-2025 16:20-0400Body ixxhswdjyrw63.4 [degF]David Tenorio DO Work Phone: [facility]06-05-2025 16:20-0400Diastolic blood rdzonjnc15 mm[Hg]David Tenorio DO Work Phone: [facility]06-05-2025 16:20-0400Heart rate79 /minAledaquan Tenorio DO Work Phone: [facility]06-05-2025 16:20-0400 Respiratory rate16 /minAlexander Coby DO Work Phone: [facility]06-05-2025 16:20-0400Systolic blood qkknbhno134 mm[Hg]David Mkaivanthomas DO Work Phone: [facility]-05-2025 09:05-5947TbI2% (BldA) [Mass fraction]99 %David Makivanthomas DO Work Phone: [facility]06-05-2025 06:30-0400Body mass index (BMI) [Ratio]32.41 kg/s9Ngzuahgis Payvandi DO Work Phone: [facility]06-05-2025 06:30-0400Body zffrti95 kgAlexandtomás Makivandi DO Work Phone: [facility] HospitalServiceTitan [facility] HospitalGuidefitterJpzrax27-98-1365 20:00-0400Body fgvbiq298 cmAlexander Coby DO Work Phone: [facility] Encounters Encounter DateEncounter TypeCare ProviderFacilityStart: 12-30-2024 End: 41-59-4267joewjrjfwuJVCMCXBOhio State Health System Start: 11-24-2024 End: 22-34-6854xafnypbstyYBOTRYSSelect Medical [facility] Shawtart: 11-18-2024 End: 45-99-2378glkwflderyZWMMLOZOhio State Health System Start: 11-09-2024 End: 41-84-6226rpvzcvxzreERBZUUFUAQMJBlanchard [facility] Start: 11-09-2024 End: 70-36-8263Qwfxkfjwtp hospital visit by Karine Pardo MD Work Phone: . [facility] Cardiac Cath/EP LabComment on above:ArrivedStart: 11-09-2024 End: 36-76-0279zhopezpsujABIXLKKFXIYSBlanchard Valley Health System [facility] Start: 11-09-2024 End: 12-13-6628Hxxfbebbxn hospital visit by Karine Pardo MD Work Phone: [facility] Cardiac Cath/EP LabComment on above:Pericardial effusionStart: 10-20-2024 End: 73-76-3652Kfbhwrlllt and management of inpatientAlexandtomás Tenorio DO Work Phone: stvz Car 2- StepdownComment on above:Pleural effusion (Primary Dx); Pericardial effusionStart: 10-19-2024 End: 54-42-6829jrqfsyltgpIFIYAXMB DAVISMercy St. Charles HospitalStart: 10-19-2024 End: 24-29-7557Reldjyafac hospital visit by physicianStc Xr Room [address] [place] [address] RadiologyComment on above:Left lower lobe pulmonary infiltrateStart: 09-29-2024 End: 06-70-1282Ekfqiirps department patient visitJUSTARSH [facility] Hospitaltart: 02-20-2024 End: 21-26-9847fzwbilkmbrRHGROP B [facility] Southtart: 62-38-3589Mxdejilqk for general adult medical examination without abnormal findingsJUSTVan Wert County Hospitaltart: 08-22-2022 End: 79-94-6782Dyhtlyprmf hospital visit by physicianSNURY LaboratoryStart: 07-17-2022 End: 95-50-3522wuqwksjddrDD KRYSTLE Funes WESTFacility:J1Dllqn: 07-03-2022 End: 92-41-7954Vlcduvhacm hospital visit by physicianSHUI Tristanohiohealth hardin memorial hospitalComment on above:Fungal nail infectionStart: 12-08-2021 End: 56-41-6452mdxmhexswgUZUCRX MOORE .Facility: Procedures DateProcedureProcedure DetailPerforming ClinicianStart: 04-34-0247Ftyf transesophag r-t 2d w/prb img acquisj i&Ton Pardo MD Work Phone: Start: 80-36-9884AGWZ HEMO INTERFACEHemlili Pardo MD Work Phone: Start: 78-86-6553Poifrbbdgj exam chest 2 Ania Anaya MD Work Phone: start: 85-23-3029Mxvu count misc body fluids w/differential countBrodie Anaya MD Work Phone: start: 46-87-9018Ya body fluid not elsewhere specified Brodie Anaya MD Work Phone: start: 10-21-2024 End: 09-38-6875Vqw bact xcpt urine blood/stool aerobic isolBrodie Anaya MD Work Phone: start: 67-74-5823Bnynesotuipkq needle/cath pleura w/imagingTrish BANKS Work Phone: Start: 66-00-2600Hopv tthrc r-t 2d w/wom-mode compl spec&colr dHeminalex Pardo MD Work Phone: Start: 56-38-5873MBRUJ METABOLIC PANEL W/ REFLEX TO MG FOR LOW KMohammad Irene DO Work Phone: Start: 05-16-3190Mppjb count complete auto&auto difrntl wbcMohammad Irene DO Work Phone: Start: 13-24-4617Cdq routine ecg w/least 12 lds i&r Sheree BANKS Work Phone: Start: 95-52-8734Oarhquavsnx timeMohammad Irene DO Work Phone: Start: 62-36-2310Fy thorax w/contrast materialGilbert Glover DO Work Phone: Start: 62-43-9784Ftssj of troponin quantitativeGilbert Glover DO Work Phone: Start: 77-74-7027Hahvc metabolic panel calcium total Gilbert Glover DO Work Phone: Start: 95-39-8114Iqu routine ecg w/least 12 lds i&r onlyGilbert Glover DO Work Phone: Start: 17-73-6371Gpucpprfaa exam chest 2 viewsRoberta Hood DO Work Phone: Start: 93-80-3610Iwpyqtknixtov metabolic panelCharles P House DO Work Phone: Start: 45-29-9760Sglur panelCharles P House DO Work Phone: Start: 83-21-7796Htzubxd function panelRebecannette Munroe CEO & [employer] 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 Charles HospitalStart: 37-68-8082Lsdbd panelLipidsBON CR[facility]ST[facility] CLINIC ORTHOPEDIC CENTERStart: 31-63-7859Owzmwqyxr for malignant neoplasm of colonBon [facility] Start: 17-96-8080Ukrzmhmyq for malignant neoplasm of cervixBon [facility]cy Health St. Charles HospitalStart: 30-27-7178Qshtkbaet for malignant neoplasm of breastBreast cancer screenBon [facility]cy Health St. Charles HospitalStart: 92-25-8925Qsfzmkllxk ScreenDepression ScreenBon Mercy Health St. Charles HospitalStart: 01-19-2025 End: 55-26-5767Oyfykzk encounter rfulyxkyz18/02/2025 11:30 AM EDT Office Visit [facility] [address] [place] [address] [place] [address] [place] [address] Physical - 3 month follow up [facility]edoComment on above:Physical - 3 month follow upStart: 02-30-3836Uwiqxdelx vaccinationFlu vaccine (Season Ended)[facility] HospitalStart: 10-30-2024 End: 47-38-8167Dmfnbmz encounter eckioizdx10/13/2025 10:00 AM EDT Office Visit [facility] [address] [place], [place] [id number] Roberta Hood [address] [place] [address] Recheck, order chest x-ray.[facility] CareComment on above:Recheck, order chest x-ray. Start: 26-74-7556Cagymqkkz for malignant neoplasm of cervixPap smearVCU Medical Centerart: 42-65-0734CQBPR-19 Vaccine ( season)COVID-19 Vaccine ( season)[facility] Centerart: 81-23-6413Bibudxnzb for malignant neoplasm of breastBreast cancer [facility] Start: 49-00-5281Wezngfmqh vaccinationFlu vaccine (Season Ended)[facility]: 58-14-2460Phnxukjoc vaccinationFlu vaccine (#1)[facility]: 33-40-9523WSHOL-19 Vaccine (3 - Booster for Sally series) COVID-19 Vaccine (3 - Booster for Sally series)[facility]: 93-07-6811Fqnybayazxj Syncytial Virus (RSV) or age 60 yrs+ (1 - Risk 60-74 years 1-dose series)Respiratory Syncytial Virus (RSV) or age 60 yrs+ (1 - Risk 60-74 years 1-dose series)[facility]: 05-04-3150Dhakrhuxxobz 50+ years Vaccine (1 of 1 - PCV)Pneumococcal 50+ years Vaccine (1 of 1 - PCV)[facility] Centerart: 16-28-8659Jzogtzjfl for malignant neoplasm of breastBreast cancer screenAugusta Healthart: 49-50-3913Xpttymodm for malignant neoplasm of colonB[facility] Start: 03-75-9819Lmtxp panelLipidsAugusta Healthart: 1996 Diabetes screenDiabetes [facility] Hospitalart: 08-22-1708Fpmjgbsrp for malignant neoplasm of cervixBON [facility] Hamiltonart: 1982 Screening for malignant neoplasm of cervixPap smearChildren's [facility]: 30-84-9879NIpC/Tdap/Td vaccine (1 - Tdap)DTaP/Tdap/Td vaccine (1 - Tdap) [facility]ITALStart: 42-23-6409Mjexrsgjshsu 50+ years Vaccine (1 of 2 - PCV)Pneumococcal 50+ years Vaccine (1 of 2 - PCV)[facility] Start: 41-53-3446Tvupnmnhb C screeningHepatitis C [facility] Start: 38-62-4513ZYU screeningHIV [facility] HospitalStart: 60-50-9064Vdxzcnghcv ScreenDepression [facility]: 49-61-3501NPVHGXBOX DEAMINASE, PLEURAL FLUIDInova Women'S HospitalComment on above:One Time for 1 Occurrences starting 10/21/2024 until 10/21/2024t thorax w/contrast materialCT CHEST PULMONARY EMBOLISM W CONTRAST Imaging STAT 10/20/2024 5:36 PM EDTBSentara Halifax Regional HospitalCulture with Smear, Acid Fast BacilliusCulture with Smear, Acid Fast Bacillius Microbiology Routine 10/21/2024 4:16 PM EDTBSentara Halifax Regional HospitalCulture, Body Fluid (with Gram Stain) Culture, Body Fluid (with Gram Stain) Microbiology [employer] Label Print 10/21/2024 4:17 PM EDStoneSprings [facility] Center End: 29-85-6088Ynchvzuk, Non-GynCytology, Non-[place] Hand Lab Routine One Time for 1 Occurrences starting 10/21/2024 until 10/21/2024Sent[facility]ifax Regional HospitalComment on above:One Time for 1 Occurrences starting 10/21/2024 until 10/21/2024Oxygen therapy [Minimum Data Set]Initiate Oxygen Therapy Protocol Respiratory Care Routine As Needed until discontinued starting 10/20/2024[facility] Comment on above:As Needed until discontinued starting 10/20/2024Oxygen therapy [Minimum Data Set]Initiate Oxygen Therapy Protocol Respiratory Care Routine As Needed until discontinued starting 11/09/2024[facility] Work Phone: Comment on above:As Needed until discontinued starting 11/09/2024 End: 67-90-9096L0[facility]CCEN[facility] Work Phone: Comment on above:Once for 1 Occurrences starting 08/22/2022 until 08/22/2022 Immunizations Immunization DateImmunizationNotesCare TzauhvjsAjzlqzgt00-87-3703vqymjw vaccine recombinantStc 2[facility] HospitalJgcdaa99-03-9289zqfvmd vaccine recombinantStc 2[facility] Payers DatePayer CategoryPayerPolicy [id number] Health [id number] 2.16.840.1.225107.3.57[id number] 2.16.840.1.667872.3.57[id number] 2.16.840.1.284191.3.57[id number] 2.16.840.1.105364.3.57[id number] 2.16.840.1.193977.3.57[id number] 2.16.840.1.778074.3.57[id number] 2.16.840.1.250553.3.57[id number] 2.16.840.1.320059.3.[id number] 1.2.840.343617.1.13.239.2.7.3.27811[id number] Social History DateTypeDetailFacilityStart: 25-09-4720Hrurwhb smoking status NHISNever smoked tobaccoABRAZO ARROW[facility] Work Phone: start: 60-40-6055Jgcnapg use and exposureSmokeless tobacco non-userABRAZO [facility]ROW[facility] Work Phone: start: 07-03-2022 End: 62-22-5881Uqpkvhv intakeCurrent drinker of alcohol (finding)[employer] Work Phone: start: 64-05-8998Jdwyljy CommentSocialABRAZO ARROWHEAD [facility]AMP[facility] Work Phone: start: 29-82-8830Ajl Assigned At BirthNot on fileABRAZO ARROWHEAD [facility] Work Phone: start: 10-20-2024 End: 11-63-2328Vcrbjec of Social functionCobalt Rehabilitation ([facility]bi) Hospital Brain Synergy InstituteStart: 10-20-2024 End: 85-14-2548ACN UtilitiesCobalt Rehabilitation ([facility]) Hospital Brain Synergy InstituteHas the [place] gas, oil, or water [address] threatened to shut off services in your home in past 12MoNoBon Brain Synergy InstituteHow often to you have a drink containing alcohol?NeverCobalt Rehabilitation ([facility]bi) Hospital Brain Synergy InstituteHow many standard drinks containing alcohol do you have on a typical day?Patient does not drinkCobalt Rehabilitation ([facility]bi) Hospital [facility] Institute(I/We) worried whether (my/our) food would run out before (I/we) got money to buy more.Never trueCobalt Rehabilitation (Tbi) Hospital [facility]nergy InstituteStart: 37-30-7686DtlUggxin (finding)[employer] Start: 94-52-2382Whpdre orientationHeterosexual (finding)[employer] Functional Status DateAssessmentResultFacilityCobalt [facility] ([facility] Clinical Notes 10-21-2024 to 12-30-2024 Note Date & LparXmyyNngpoukw93-69-2759 NoteUT Gastroenterology Follow-Up Patient Visit CHIEF COMPLAINT Chief Complaint Patient presents with Follow-up Test results from stool. HISTORY OF PRESENT ILLNESS: Katlin Carpenter is a 64 y.o. female with PMHx of HTN, CHF, who presents following ED visit 09/29/24 due to acute onset chest pain associated with increased belching. Workup during evaluation included normal troponin, and normal lipase/LFTs. Chest XR showed cardiomegaly with minimal left basilar effusion and/or infiltrate. She was discharged home with a prescription for omeprazole. Around this time, patient was also experiencing intermittent low-grade fevers for which she she was put on Amoxicillin. Repeat Chest XR 10/19/24 showed moderate left pleural effusion with cardiomegaly. Thoracentesis was completed 10/21/24 with removal of 500 mL, therefore she was started on lasix. ECHO 10/21/24 with findings of small pericardial effusion and moderate mitral regurgitation. Subsequent CARY performed 11/09/24 revealed mild prolapse of mitral valve with moderate regurgitation, EF 55-60%. Today patient states that she is no longer experiencing any chest pain, however endorses continued belching which has been ongoing for ~1 year. Reports LUQ abdominal pain with radiation to left-side of abdomen, occurring constantly, which began following thoracentesis, and has gradually been improving. Deep breaths and sneezing tend to worsen pain; pain is unchanged with eating. Patient denies history of GERD. Denies unintentional weight loss, decreased appetite, heartburn, regurgitation, dysphagia, nausea/vomiting, changes in bowel habits, melena, hematochezia. No prior EGD. She underwent colonoscopy ~10 years ago, which reportedly was normal. Cologuard was completed 07/28/23, which was negative. Patient was previously taking omeprazole 20 mg once daily, however was told to discontinue medication. Denies regular use of NSAIDs. Surgical history: Cholecystectomy 06/21 biliary colic Family history: Denies FHx of GI related malignancies, celiac disease, reports possible history of Crohn's disease in first cousin Social history: Non-smoker, occasional EtOH use (a few glasses of wine per week), denies illicit drug use INTERVAL HISTORY 12/30/24: Patient presents today in follow-up. H pylori stool antigen was negative (11/24/24). She reports that belching has diminished and she has had no further episodes of chest pain. Denies dysphagia, heartburn, regurgitation, nausea/vomiting, changes in bowel habits, melena, hematochezia. She has no other concerns at this time. PREVIOUS LABS/IMAGING/ENDOSCOPY: N/A HISTORY: Problem list: Problem List[1] Past Medical History: Medical History[2] Past Surgical History: Surgical History[3] FAMILY HISTORY: Family History[4] SOCIAL HISTORY: Social History[5] ALLERGIES: Sulfa (sulfonamide antibiotics) Current Medications: Current Medications[6] I reviewed and reconciled this patient's medication list today. The list included in this note is the most up to date list that I can attest to at this time based on the information that the patient has provided me and the electronic medical record. REVIEW OF SYSTEMS: See HPI, otherwise ROS as below CONSTITUTIONAL: negative HEENT: negative RESPIRATORY: negative CARDIOVASCULAR: negative GASTROINTESTINAL: As in HPI GENITOURINARY: negative INTEGUMENT/BREAST: negative MUSCULOSKELETAL: negative NEUROLOGICAL: negative BEHAVIOR/PSYCH: negative PHYSICAL EXAM: Vitals: 12/30/24 0900 BP: 123/81 BP Location: Right arm Patient Position: Sitting BP Cuff Size: Adult Pulse: 81 SpO2: 96% Weight: 32.6 kg (71 lb 12.8 oz) Height: 1.6 m (5' 3 ) Body mass index is 12.72 kg/m???. GEN: Alert and oriented x3, NAD HEENT: Atraumatic, normocephalic CV: Regular rate and rhythm PULM: Breathing comfortably ABD: Soft, non-tender, non-distended NEURO: Moves all 4 extremities spontaneously LABORATORY DATA: CBC: No results found for: WBC , RBC , HGB , HCT , MCV , RDW , PLT PT/INR No results found for: PT , INR BMP: No results found for: NA , K , CL , BUN , CREATININE , EGFR , GLU LFTs: No results found for: BILITOT , BILIDIR , ALKPHOS , GGT , AST , ALT , ALBUMIN , PROT B12/Folate/Iron studies: No results found for: HNIZAGSA18 , FOLATE , IRON , TIBC , UIBC , IRONSAT , FERRITIN Viral Hepatitis No results found for: HEPAIGM , HAV , HEPBSAG , HEPBSAB , HEPBEAB , HEPBIGM , HEPBCAB , HEPBCOREAB , HBVNAT , HCVSCR , HEPCAB , HCVNAT , HCVPCR , HCVTMA Liver Workup No results found for: GEORGE , SMOOTHMUSCAB , CERULOPLSM , L8BYDVEVPAF , TTGA , IGA , TSH , FREET4 , AFP Pancreatitis No results found for: AMYLASE , LIPASE , TRIG , CALCIUM ASSESSMENT AND PLAN: Impression: Chest pain, IMPROVED Patient presented to ED 09/2024 d/t acute onset chest pain with increased belching. Chest (more content not included)...[facility]07-02-[facility] New Patient Visit - History & Physical CHIEF COMPLAINT Chief Complaint Patient presents with New Patient Epigastric pain/belching HISTORY OF PRESENT ILLNESS: Katlin Carpenter is a 64 y.o. female with PMHx of HTN, CHF, who presents following ED visit 09/29/24 due to acute onset chest pain associated with increased belching. Workup during evaluation included normal troponin, and normal lipase/LFTs. Chest XR showed cardiomegaly with minimal left basilar effusion and/or infiltrate. She was discharged home with a prescription for omeprazole. Around this time, patient was also experiencing intermittent low-grade fevers for which she she was put on Amoxicillin. Repeat Chest XR 10/19/24 showed moderate left pleural effusion with cardiomegaly. Thoracentesis was completed 10/21/24 with removal of 500 mL, therefore she was started on lasix. ECHO 10/21/24 with findings of small pericardial effusion and moderate mitral regurgitation. Subsequent CARY performed 11/09/24 revealed mild prolapse of mitral valve with moderate regurgitation, EF 55-60%. Today patient states that she is no longer experiencing any chest pain, however endorses continued belching which has been ongoing for ~1 year. Reports LUQ abdominal pain with radiation to left-side of abdomen, occurring constantly, which began following thoracentesis, and has gradually been improving. Deep breaths and sneezing tend to worsen pain; pain is unchanged with eating. Patient denies history of GERD. Denies unintentional weight loss, decreased appetite, heartburn, regurgitation, dysphagia, nausea/vomiting, changes in bowel habits, melena, hematochezia. No prior EGD. She underwent colonoscopy ~10 years ago, which reportedly was normal. Cologuard was completed 07/28/23, which was negative. Patient was previously taking omeprazole 20 mg once daily, however was told to discontinue medication. Denies regular use of NSAIDs. Surgical history: Cholecystectomy 06/21 biliary colic Family history: Denies FHx of GI related malignancies, celiac disease, reports possible history of Crohn's disease in first cousin Social history: Non-smoker, occasional EtOH use (a few glasses of wine per week), denies illicit drug use PREVIOUS LABS/IMAGING/ENDOSCOPY: N/A HISTORY: Problem list: Problem List[1] Past Medical History: Medical History[2] Past Surgical History: Surgical History[3] FAMILY HISTORY: Family History[4] SOCIAL HISTORY: Social History[5] ALLERGIES: Sulfa (sulfonamide antibiotics) Current Medications: Current Medications[6] I reviewed and reconciled this patient's medication list today. The list included in this note is the most up to date list that I can attest to at this time based on the information that the patient has provided me and the electronic medical record. REVIEW OF SYSTEMS: See HPI, otherwise ROS as below CONSTITUTIONAL: negative HEENT: negative RESPIRATORY: negative CARDIOVASCULAR: negative GASTROINTESTINAL: As in HPI GENITOURINARY: negative INTEGUMENT/BREAST: negative MUSCULOSKELETAL: negative NEUROLOGICAL: negative BEHAVIOR/PSYCH: negative PHYSICAL EXAM: Vitals: 11/18/24 0859 BP: 147/89 BP Location: Right arm Patient Position: Sitting BP Cuff Size: Adult Pulse: 74 SpO2: 93% Weight: 79.4 kg (175 lb 1.6 oz) Height: 1.6 m (5' 3 ) Body mass index is 31.02 kg/m???. GEN: Alert and oriented x3, NAD HEENT: Atraumatic, normocephalic CV: Regular rate and rhythm PULM: Breathing comfortably ABD: Soft, non-tender, non-distended NEURO: Moves all 4 extremities spontaneously LABORATORY DATA: CBC: No results found for: WBC , RBC , HGB , HCT , MCV , RDW , PLT PT/INR No results found for: PT , INR BMP: No results found for: NA , K , CL , BUN , CREATININE , EGFR , GLU LFTs: No results found for: BILITOT , BILIDIR , ALKPHOS , GGT , AST , ALT , ALBUMIN , PROT B12/Folate/Iron studies: No results found for: [id number] , FOLATE , IRON , TIBC , UIBC , IRONSAT , FERRITIN Viral Hepatitis No results found for: HEPAIGM , HAV , HEPBSAG , HEPBSAB , HEPBEAB , HEPBIGM , HEPBCAB , HEPBCOREAB , HBVNAT , HCVSCR , HEPCAB , HCVNAT , HCVPCR , HCVTMA Liver Workup No results found for: GEORGE , SMOOTHMUSCAB , CERULOPLSM , [id number] , TTGA , IGA , TSH , FREET4 , AFP Pancreatitis No results found for: AMYLASE , LIPASE , TRIG , CALCIUM ASSESSMENT AND PLAN: Impression: Chest pain, IMPROVING Patient presented to ED 09/2024 d/t acute onset chest pain with increased belching. Chest XR revealed cardiomegaly, with repeat chest XR 10/19/24 revealing moderate left pleural effusion s/p thoracentesis with 500 mL removed. ECHO 10/21/24 showed small pericardial effusion and moderate mitral regurgitation. CARY 11/09/24 revealed mild prolapse of mitral valve with moderate regurgitation, EF 55-60%. No further chest pain, den (more content not included)...[facility] History of Present illness Narrative* Zulema Dhillon RN - 11/09/2024 10:34 AM EDT Discharge instructions explained to patient and spouse. Both state understanding. Awaiting to speakwith Dr. Pardo. * Zulema Dhillon RN - 11/09/2024 10:33 AM EDT Patient. Gait steady walking around hallway. * Zulema Dhillon RN - 11/09/2024 10:00 AM EDT Patient drinking water without difficulty. * Zulema Dhillon RN - 11/09/2024 9:30 AM EDT Patient returned to room. Post CARY recovery initiated. . Patient awake and alert, denies any complaints. Side rails up times 2, call light with in reach.patient closely monitored * Moris West RN - 11/09/2024 9:28 AM EDT TRANSFER - OUT REPORT: Verbal report given to Zulema NARVAEZ on Katlin Carpenter being transferred to [facility] for routine post-op Report consisted of patient's Situation, Background, Assessment and Recommendations(SBAR). Information from the following report(s) Nurse Handoff Report was reviewed with the receiving nurse. Opportunity for questions and clarification was provided. Patient transported with: Registered Nurse Tech * Zulema Dhillon RN - 11/09/2024 9:00 AM EDT Patient admitted, consent signed and questions answered. Patient ready for procedure. Call light toreach with side rails up 2 of 2. family at bedside with patient. History and physical needed. documented in this encounterBon [facility] Discharge instructions* Discharge Instructions* Zulema Dhillon RN - 11/09/2024 9:35 AM EDT Images from the original note were not included. TRANSESOPHAGEAL ECHOCARDIOGRAM / CARY DISCHARGE INSTRUCTIONS If the following occurs call your physician or seek help -trouble with swallowing -spitting or coughing up blood -severe pain in the throat region / your throat can be sore for several days but pain should not increase as days continue Do not drive or operate heavy machinery today due to sedation Transesophageal Echocardiogram: What is a transesophageal echocardiogram? A transesophageal echocardiogram is a test to help your doctor look at the inside of your heart. A small device called a transducer directs sound waves toward your heart. The sound waves make a picture of the heart's valves and chambers. Your doctor may do this test to look for certain types of heart disease. Or it may be done to see how disease is affecting your heart. You will be given medicine to make you sleepy and comfortable during the test. The doctor puts a small, flexible tube into your throat and guides it to the esophagus. This is thetube that connects your mouth to your stomach. The doctor will ask you to swallow as the tube goes down. The transducer is at the tip of the tube. It gets close to your heart to make clear pictures. The doctor will look at the ultrasound pictures on a screen. You will not be able to eat or drink until the numbness from the throat spray wears off. Your throat may be sore for a few days after the test. Follow-up care is a pederson part of your treatment and safety. Be sure to make and go to all appointments, and call your doctor if you are having problems. It's also a good idea to know your test resultsand keep a list of your current medications. Going home Be sure you have someone to drive you home. Anesthesia and pain medicine make it unsafe for you to drive. Where can you learn more? Go to [email or web address] and sign in to your [employer] account. Enter K500 in the Search Health Information box to learn more about Transesophageal Echocardiogram: Before Your Procedure. If you do not have an account, please click on the Sign Up Now link. [id number] [employer]. Care instructions adapted under license by [employer] [facility]. This care instruction is for use with your licensed healthcare professional. If you have questions about amedical condition or this instruction, always ask your healthcare professional. [employer] disclaims any warranty or liability for your use of this information. Content Version: 10.6.793898; Current as of: July 09, 2014 documented in this encounterBon [facility] Discharge instructions* Discharge Instr - Activity* Emma Delatorre RN - 10/22/2024 5:07 PM EDT As tolerated * Discharge Instr - Diet* Emma Delatorre RN - 10/22/2024 5:07 PM EDT Good nutrition is important when healing from an illness, injury, or surgery. Follow any nutrition recommendations given to you during your hospital stay. If you were given an oral nutrition supplement while in the hospital, continue to take this supplement at home. You can take it with meals, in-between meals, and/or before bedtime. These supplements can be purchased at most local grocery stores, pharmacies, and chain [employer]stores. If you have any questions about your diet or nutrition, call the hospital and ask for the dietitian. Heart-Healthy Diet Sodium, Fat, and Cholesterol Controlled Diet What Is a Heart Healthy Diet? A heart-healthy diet is one that limits sodium , certain types of fat , and cholesterol . This typeof diet is recommended for: People with any form of cardiovascular disease (eg, coronary heart disease , peripheral vascular disease , previous heart attack , previous stroke ) People with risk factors for cardiovascular disease, such as high blood pressure , high cholesterol, or diabetes Anyone who wants to lower their risk of developing cardiovascular disease Sodium Sodium is a mineral found in many foods. In general, most people consume much more sodium than theyneed. Diets high in sodium can increase blood pressure and lead to edema (water retention). On a heart-healthy diet, you should consume no more than 2,300 mg (milligrams) of sodium per dayabout the amount in one teaspoon of table salt. The foods highest in sodium include table salt (about 50% sodium), processed foods, convenience foods, and preserved foods. Cholesterol Cholesterol is a fat-like, waxy substance in your blood. Our bodies make some cholesterol. It is also found in animal products, with the highest amounts in fatty meat, egg yolks, whole milk, cheese, shellfish, and organ meats. On a heart-healthy diet, you should limit your cholesterol intake to less than 200 mg per day. It is normal and important to have some cholesterol in your bloodstream. But too much cholesterol can cause plaque to build up within your arteries, which can eventually lead to a heart attack or stroke. The two types of cholesterol that are most commonly referred to are: Low-density lipoprotein (LDL) cholesterol Also known as bad cholesterol, this is the cholesterol that tends to build up along your arteries. Bad cholesterol levels are increased by eating fats that are saturated or hydrogenated. Optimal level of this cholesterol is less than 100. Over 130 starts toget risky for heart disease. High-density lipoprotein (HDL) cholesterol Also known as good cholesterol, this type of cholesterolactually carries cholesterol away from your arteries and may, therefore, help lower your risk of having a heart attack. You want this level to be high (ideally greater than 60). It is a risk to have a level less than 40. You can raise this good cholesterol by eating olive oil, canola oil, avocados, or nuts. Exercise raises this level, too. Fat Fat is calorie dense and packs a lot of calories into a small amount of food. Even though fats should be limited due to their high calorie content, not all fats are bad. In fact, some fats are quite healthful. Fat can be broken down into four main types. The [id number] fats are: Monounsaturated fat found in oils such as olive and canola, avocados, and nuts and natural nut butters; can decrease cholesterol levels, while keeping levels of HDL cholesterol high Polyunsaturated fat found in oils such as safflower, sunflower, soybean, corn, and sesame; can decrease total cholesterol and LDL cholesterol Evans-3 fatty acids particularly those found in fatty fish (such as salmon, trout, tuna, mackerel, diaz, and sardines); can decrease risk of arrhythmias, decrease triglyceride levels, and slightlylower blood pressure The fats that you want to limit are: Saturated fat found in animal products, many fast foods, and a few vegetables; increases total blood cholesterol, including LDL levels Animal fats that are saturated include: butter, lard, whole-milk dairy products, meat fat, and poultry skin Vegetable fats that are saturated include: hydrogenated shortening, palm oil, coconut oil, cocoa butter Hydrogenated or trans fat found in margarine and vegetable shortening, most shelf stable snack foods, and fried foods; increases LDL and decreases HDL It is generally recommended that you limit your total fat for the day to less than 30% of your total calories. If you follow an 1800-calorie heart healthy diet, for example, this would mean 60 grams of fat or less per day. Saturated fat and trans fat in your diet raises your blood cholesterol the most, much more than dietary cholesterol does. For this reason, on a heart-healthy diet, less than 7% of your calories should come from saturated fat and ideally 0% from trans fat. On an 1800-calorie diet, this translates into less than 14 grams of saturated fat per day, leaving 46 grams of fat to come from mono- and polyunsaturated fats. Food Choices on a Heart Healthy Diet Food Category Foods Recommended Foods to Avoid Grains Breads and rolls without salted tops Most dry and cooked cereals Unsalted crackers and breadsticks Low-sodium or homemade breadcrumbs or stuffing All rice and pastas Breads, rolls, and crackers with salted tops High-fat baked goods (eg, muffins, donuts, pastries) Quick breads, self-rising flour, and biscuit mixes Regular bread crumbs Instant hot cereals Commercially prepared rice, pasta, or stuffing mixes Vegetables Most fresh, frozen, and low-sodium canned vegetables Low-sodium and salt-free vegetable juices Canned vegetables if unsalted or rinsed Regular canned vegetables and juices, including sauerkraut and pickled vegetables Frozen vegetableswith sauces Commercially prepared potato and vegetable mixes Fruits Most fresh, frozen, and canned fruits All fruit juices Fruits processed with salt or sodium Milk Nonfat or low-fat (1%) milk Nonfat or low-fat yogurt Cottage cheese, low-fat ricotta, cheeses labeled as low-fat and low-sodium Whole milk Reduced-fat (2%) milk Malted and chocolate milk Full fat yogurt Most cheeses (unless low-fat and low salt) Buttermilk (no more than 1 cup per week) Meats and Beans Lean cuts of fresh or frozen beef, veal, sanchez, or pork (look for the word loin) Fresh or frozen poultry without the skin Fresh or frozen fish and some shellfish Egg whites and egg substitutes (Limit whole eggs to three per week) Tofu Nuts or seeds (unsalted, dry-roasted), low-sodium peanut butter Dried peas, beans, and lentils Any smoked, cured, salted, or canned meat, fish, or poultry (including storm, chipped beef, cold cuts, hot dogs, sausages, sardines, and anchovies) Poultry skins Breaded and/or fried fish or meats Canned peas, beans, and lentils Salted nuts Fats and Oils [place] oil and canola oil Low-sodium, low-fat salad dressings and mayonnaise Butter, margarine, coconut and palm oils, storm fat Snacks, Sweets, and Condiments Low-sodium or unsalted versions of broths, soups, soy sauce, and condiments Pepper, herbs, and spices; vinegar, lemon, or gila river juice Low-fat frozen desserts (yogurt, sherbet, fruit bars) Sugar, cocoapowder, honey, syrup, jam, and preserves Low-fat, trans-fat free cookies, cakes, and pies [place] and animal crackers, fig bars, niru snaps High-fat desserts Broth, soups, gravies, and sauces, made from instant mixes or other high-sodium ingredients Salted snack foods Canned olives Meat tenderizers, seasoning salt, and most flavored vinegars Beverages Low-sodium carbonated beverages Tea and coffee in moderation Soy milk Commercially softened water Suggestions Make whole grains, fruits, and vegetables the base of your diet. Choose heart-healthy fats such as canola, olive, and flaxseed oil, and foods high in heart-healthy fats, such as nuts, seeds, soybeans, tofu, and fish. Eat fish at least twice per week; the fish highest in omega-3 fatty acids and lowest in mercury include salmon, diaz, mackerel, sardines, and canned chunk light tuna. If you eat fish less than twice per week or have high triglycerides, talk to your doctor about taking fish oil supplements. Read food labels. For products low in fat and cholesterol, look for fat free, low-fat, cholesterol free, saturated fat free, and trans fat freeAlso scan the Nutrition Facts Label, which lists saturated fat, trans fat,and cholesterol amounts. For products low in sodium, look for sodium free, very low sodium, low sodium, no added salt, and unsalted Skip the salt when cooking or at the table; if food needs more flavor, get creative and try out different herbs and spices. Garlic and onion also add substantial flavor to foods. Trim any visible fat off meat and poultry before cooking, and drain the fat off after costello. Use cooking methods that require little or no added fat, such as grilling, boiling, baking, poaching, broiling, roasting, steaming, stir-frying, and sauting. Avoid fast food and convenience food. They tend to be high in saturated and trans fat and have a lot of added salt. Talk to a registered dietitian for individualized diet advice. Last Reviewed: July 2010 Мария Bentley MS, MPH, RD Updated: 08/15/2010 * Attachments The following attachments cannot be sent through Care Everywhere. * Echocardiogram: Stress (Fijian) * Thoracentesis: Post op (Fijian) documented in this encounterBon [facility] Hospital course Narrative* Brodie Anaya MD - 10/22/2024 3:36 PM EDT [facility] IN-PATIENT SERVICE [facility] Discharge Summary Patient ID: Katlin Carpenter : 1960 ACCOUNT: [id number] Patient's PCP: Stone Hernandez PA Admit Date: 10/20/2024 Discharge Date: 10/22/2024 Length of Stay: 2 Code Status: Full Code Admitting Physician: No admitting provider for patient encounter. Discharge Physician: Brodie Anaya MD Active Discharge Diagnoses: Principal diagnosis: Acute CHF secondary to valvular disease/mitral regurgitation Moderate mitral regurgitation Hospital Problem Lists: Principal Problem: Pericardial effusion Active Problems: Bilateral pleural effusion Acute pericarditis Resolved Problems: * No resolved hospital problems. * Admission Condition: fair Discharged Condition: stable Hospital Stay: Hospital Course: Katlin Carpenter is a 64 y.o. female who was admitted for the management of Pericardial effusion , presented to ER with Chest Pain Per H&P: Per H&P:This 64-year-old female was admitted for management of pericardial effusion and bilateral pleural effusions. Patient reports increasing dyspnea on exertion and orthopnea for the past 3 weeks. She states she had an outpatient chest x-ray done, and was called and told that she had an enlarged heart. She was then advised to come to the emergency department. She had been taking amoxicillin, finished her course of this from her PCP on of last week. She recently started Levaquin that was also prescribed from her PCP due to continued symptoms. She continues to have fevers with Tmax 102, chills, diaphoresis, dyspnea on exertion, nonproductive cough, and intermittent mild chest pressure. She denies any known history of malignancy. No further concerns reported. Summary: Patient was admitted to the hospital and had echocardiogram done which showed minimal pleural effusion and pericardial fat. EF was calculated at 54% with normal diastolic function but has moderate mitral regurgitation. Patient was diuresed and improved. Thoracentesis was done and was transudate. Patient was seen by cardiology started on losartan for afterload reduction and will be switched to oral Lasix. Patient needs to follow-up with cardiology as an outpatient Physical Examination: General appearance: alert, cooperative and no distress Lungs: clear to auscultation bilaterally, normal effort Heart: regular rate and rhythm, no murmur Abdomen: soft, nontender, nondistended, normal bowel sounds Extremities: no edema, redness, tenderness in the calves Skin: no gross lesions or rashes Significant therapeutic interventions: Significant Diagnostic Studies: Labs / Micro: Hematology: Recent Labs 10/20/24 1524 10/20/24 2211 10/21/24 0656 WBC 11.6* -- 11.9* RBC 4.41 -- 4.24 HGB 12.9 -- 12.3 HCT 39.4 -- 39.4 MCV 89.3 -- 92.9 MCH 29.3 -- 29.0 MCHC 32.7 -- 31.2 RDW 12.1 -- 12.0 PLT 427 -- 442 MPV 9.0 -- 9.4 INR -- 1.2 -- DDIMER 4.45* -- -- Chemistry: Recent Labs 10/20/24 1524 10/20/24 1627 10/21/24 0656 NA 136 -- 134* K 4.1 -- 3.9 CL 101 -- 102 CO2 23 -- 19* GLUCOSE 101* -- 113* BUN 16 -- 14 CREATININE 0.6 -- 0.4* ANIONGAP 12 -- 13 LABGLOM >90 -- >90 CALCIUM 9.3 -- 9.1 PROBNP 232* -- -- TROPHS 7 8 -- No results for input(s): LABALBU , LABA1C , X5QMEJF , FT4 , TSH , AST , ALT , LDH , GGT , ALKPHOS , BILITOT , BILIDIR , AMMONIA , AMYLASE , LIPASE , LACTATE , CHOL , HDL , CHOLHDLRATIO , TRIG , VLDL , OJY41SV , PHENYTOIN , PHENYF , URICACID , POCGLU in the last 72 hours. Invalid input(s): PROT , D9HQDMX , LABGGT , LDLCHOLESTEROL ABG:No results found for: POCPH , PHART , PH , POCPCO2 , HGC3RVW , PCO2 , POCPO2 , PO2ART , PO2 , POCHCO3 , KQI6UOQ , HCO3 , NBEA , PBEA , BEART , BE , THGBART , THB , TJC7GLT , EMCX6MBD , A5LFWWIL , O2SAT , FIO2 No results found for: SPECIAL Lab Results Component Value Date/Time CULTURE NO GROWTH 12 HOURS 10/21/2024 04:17 PM Radiology: XR CHEST (2 VW) Result Date: 10/22/2024 1. Slightly decreased opacity left lung base and slightly smaller left effusion. 2. Stable probablesmall right effusion. 3. Stable cardiomegaly with mild pulmonary hypertension but no radiographic CHF. US THORACENTESIS Which side should the procedure be performed? Radiologist Recommendation Result Date: 10/21/2024 Successful ultrasound guided diagnostic left thoracentesis. CT CHEST PULMONARY EMBOLISM W CONTRAST Result Date: 10/20/2024 1. No evidence of pulmonary embolism. 2. Moderate to large pericardial effusion with findings suggestive of pericarditis. 3. Moderate left pleural effusion and small right pleural effusion. 4. Consolidation and atelectasis of the infrahilar left lung. XR CHEST (2 VW) Result Date: 10/20/2024 1. Moderate left pleural effusion with apparent left basal atelectasis. 2. Cardiomegaly. 10/20/24 ECHO (TTE) COMPLETE (PRN CONTRAST/BUBBLE/STRAIN/3D) 10/21/2024 3:02 PM (Final) Interpretation Summary Left Ventricle: Normal left ventricular systolic function. EF by 2D Simpsons Biplane is 54%. Left ventricle size is normal. Normal wall thickness. Normal wall motion. Normal diastolic function. Right Ventricle: Right ventricle size is normal. Normal systolic function. TDI systolic excursion is normal. RV Free Wall Peak S' is 10.2 cm/s. Mitral Valve: Mild prolapse of the anterior leaflet noted. Moderate to severe regurgitation with aneccentrically directed jet and may underestimate severity. Recommend CARY. Pericardium: There is evidence of epicardial fat. No pericardial effusion. Extracardiac: Pleural effusion present. Image quality is adequate. Signed by: Jatinder Vega DO on 10/21/2024 3:02 PM Consultations: Consults: Final Specialist Recommendations/Findings: IP CONSULT TO HOSPITALIST IP CONSULT TO CARDIOLOGY IP CONSULT TO CARDIOLOGY The patient was seen and examined on day of discharge and this discharge summary is in conjunction with any daily progress note from day of discharge. Discharge plan: Disposition: Home Physician Follow [place]: [place] [id number] [facility] [address] [place] [id number] Follow up in 1 week(s) [place] [address] [facility] [address] [place] [id number] Follow up in 1 week(s) [place] [address] [facility] [address] [place] [id number] Follow up Requiring Further Evaluation/Follow Up POST HOSPITALIZATION/Incidental Findings: Diet: regular diet Activity: As tolerated Instructions to Patient: Discharge Medications: Medication List START taking these medications furosemide 20 MG tablet Commonly known as: Lasix Take 1 tablet by mouth daily valsartan 40 MG tablet Commonly known as: DIOVAN Take 1 tablet by mouth daily Start taking on: October 23, 2024 CONTINUE taking these medications Medical Compression Stockings Misc 2 each by Does not apply route daily Right and left knee high compression stockings. 30-40 mmHg. Jaleel worn continuously throughout the day. omeprazole 20 MG delayed release capsule Commonly known as: PRILOSEC STOP taking these medications levoFLOXacin 750 MG tablet Commonly known as: LEVAQUIN Where to Get Your Medications These medications were sent to [id number] - [place], [place] - [address] [facility] [address] P [phone] - F [phone] [id number] [facility] [facility] [id number] furosemide 20 MG tablet valsartan 40 MG tablet No discharge procedures on file. Time Spent on discharge is 25 mins in patient examination, evaluation, counseling as well as medication reconciliation, prescriptions for required medications, discharge plan and follow up. Electronically signed by Brodie Anaya MD 10/22/2024 3:36 PM Thank you Stone Hardy PA for the opportunity to be involved in this patient's care. documented in this encounterBon [facility] NotePROCEDURE: ULTRASOUNDGUIDED LEFT THORACENTESIS 10/21/2024 HISTORY: ORDERING SYSTEM PROVIDED HISTORY: pleural effusion TECHNOLOGIST PROVIDED HISTORY: pleural effusion Which side should the procedure be performed?->Radiologist Recommendation Does fluid need testing? If yes, please place LAB Orders.->Yes Is the procedure for Diagnostic or Therapeutic reasons?->Diagnostic TECHNIQUE: This procedure was performed by Dameon Fam PA-C under indirect supervision of Dr. Crowder. Informed consent was obtained after a detailed explanation of the procedure including but not limited to risks and benefits of the procedure. The posterior chest was prepped and draped using universal protocol and sterile barrier technique. Sterile barrier technique was used, including cap, mask, sterile gloves, sterile drapes, hand hygiene and 2% chlorhexidine for cutaneous antisepsis were followed. While the patient was seated upright, after localizing, marking and anesthetizing the posterior left lower chest with one percent lidocaine. A 5 Hebrew Yueh needle was advanced into the pleural effusion under ultrasound guidance. A saved sonographic image demonstrates safe tract access. The catheter was advanced and the needle was removed. The catheter was connected to a Vacutainer bottle and 500 mL of naty fluidwere drained. Postprocedural ultrasound demonstrated no significant residual fluid. The catheter was removed and the site was dressed appropriately. A sample was sent for laboratory analysis. Estimated blood loss was minimum. The patient tolerated the procedure well and left the department in stable condition. FINDINGS: A total of 500 mL of naty fluid was removed. [id number] NotePROCEDURE: ULTRASOUNDGUIDED LEFT THORACENTESIS 10/21/2024 HISTORY: ORDERING SYSTEM PROVIDED HISTORY: pleural effusion TECHNOLOGIST PROVIDED HISTORY: pleural effusion Which side should the procedure be performed?->Radiologist Recommendation Does fluid need testing? If yes, please place LAB Orders.->Yes Is the procedure for Diagnostic or Therapeutic reasons?->Diagnostic TECHNIQUE: This procedure was performed by Dameon Fam PA-C under indirect supervision of Dr. Crowder. Informed consent was obtained after a detailed explanation of the procedure including but not limited to risks and benefits of the procedure. The posterior chest was prepped and draped using universal protocol and sterile barrier technique. Sterile barrier technique was used, including cap, mask, sterile gloves, sterile drapes, hand hygiene and 2% chlorhexidine for cutaneous antisepsis were followed. While the patient was seated upright, after localizing, marking and anesthetizing the posterior left lower chest with one percent lidocaine. A 5 Hebrew Yueh needle was advanced into the pleural effusion under ultrasound guidance. A saved sonographic image demonstrates safe tract access. The catheter was advanced and the needle was removed. The catheter was connected to a Vacutainer bottle and 500 mL of naty fluidwere drained. Postprocedural ultrasound demonstrated no significant residual fluid. The catheter was removed and the site was dressed appropriately. A sample was sent for laboratory analysis. Estimated blood loss was minimum. The patient tolerated the procedure well and left the department in stable condition. FINDINGS: A total of 500 mL of naty fluid was removed. IMPRESSION: Successful ultrasound guided diagnostic left thoracentesis. Interpreted by: Mason Crowder MD Redfox, Jacob, PA Signed by: Mason Crowder MD 10/21/24 [facility] History of Present illness Narrative* Brodie Anaya MD - 10/21/2024 1:03 PM EDT [facility] IN-PATIENT SERVICE [facility] Progress Note 10/21/2024 1:03 PM Name: Katlin Carpenter Acct: [id number] Room: IP Day: 1 Admit Date: 10/20/2024 3:11 PM PCP: Stone Hernandez PA Code Status: Full Code Subjective: Interval History Status: not changed. Denies chest pain or shortness of breath at rest. Afebrile this morning. Per H&P:This 64-year-old female was admitted for management of pericardial effusion and bilateral pleural effusions. Patient reports increasing dyspnea on exertion and orthopnea for the past 3 weeks. She states she had an outpatient chest x-ray done, and was called and told that she had an enlarged heart. She was then advised to come to the emergency department. She had been taking amoxicillin, finished her course of this from her PCP on of last week. She recently started Levaquin that was also prescribed from her PCP due to continued symptoms. She continues to have fevers with Tmax 102, chills, diaphoresis, dyspnea on exertion, nonproductive cough, and intermittent mild chest pressure. She denies any known history of malignancy. No further concerns reported. Medications: Allergies: Allergies Allergen Reactions Sulfa Antibiotics Rash Current Meds: Scheduled Meds: pantoprazole 40 mg Oral QAM AC sodium chloride flush 5-40 mL IntraVENous 2 times per day ibuprofen 600 mg Oral TID WC colchicine 0.6 mg Oral BID Continuous Infusions: sodium chloride PRN Meds: sodium chloride flush, sodium chloride, potassium chloride OR potassium alternative oral replacement OR potassium chloride, magnesium sulfate, ondansetron OR ondansetron, polyethylene glycol, acetaminophen OR acetaminophen Data: Past Medical History: has no past medical history on file. Social History: reports that she has never smoked. She has never used smokeless tobacco. She reports current alcohol use. She reports that she does not use drugs. Family History: History reviewed. No pertinent family history. Vitals: BP (!) 144/98 Pulse 81 Temp 98.9 F (37.2 C) (Oral) Resp 18 Ht 1.6 m (5' 3 ) Wt 79.8 kg (176 lb) SpO2 97% BMI 31.18 kg/m Temp (24hrs), Av.9 F (37.2 C), Min:98.6 F (37 C), Max:99.4 F (37.4 C) No results for input(s): POCGLU in the last 72 hours. I/O (24Hr): Intake/Output Summary (Last 24 hours) at 10/21/2024 1303 Last data filed at 10/20/2024 2139 Gross per 24 hour Intake 10 ml Output -- Net 10 ml Labs: Hematology: Recent Labs 10/20/24 1524 10/20/24 2211 10/21/24 0656 WBC 11.6* -- 11.9* RBC 4.41 -- 4.24 HGB 12.9 -- 12.3 HCT 39.4 -- 39.4 MCV 89.3 -- 92.9 MCH 29.3 -- 29.0 MCHC 32.7 -- 31.2 RDW 12.1 -- 12.0 PLT 427 -- 442 MPV 9.0 -- 9.4 INR -- 1.2 -- DDIMER 4.45* -- -- Chemistry: Recent Labs 10/20/24 1524 10/20/24 1627 10/21/24 0656 NA 136 -- 134* K 4.1 -- 3.9 CL 101 -- 102 CO2 23 -- 19* GLUCOSE 101* -- 113* BUN 16 -- 14 CREATININE 0.6 -- 0.4* ANIONGAP 12 -- 13 LABGLOM >90 -- >90 CALCIUM 9.3 -- 9.1 PROBNP 232* -- -- TROPHS 7 8 -- No results for input(s): LABALBU , LABA1C , H6DPSOZ , FT4 , TSH , AST , ALT , LDH , GGT , ALKPHOS , BILITOT , BILIDIR , AMMONIA , AMYLASE , LIPASE , LACTATE , CHOL , HDL , CHOLHDLRATIO , TRIG , VLDL , UTL65NC , PHENYTOIN , PHENYF , URICACID , POCGLU in the last 72 hours. Invalid input(s): PROT , N1UMIEP , LABGGT , LDLCHOLESTEROL ABG:No results found for: POCPH , PHART , PH , POCPCO2 , APE6KBD , PCO2 , POCPO2 , PO2ART , PO2 , POCHCO3 , CWA5ZEN , HCO3 , NBEA , PBEA , BEART , BE , THGBART , THB , MFQ8JAX , SOKE1VCO , J9CWOEJB , O2SAT , FIO2 No results found for: SPECIAL No results found for: CULTURE Radiology: CT CHEST PULMONARY EMBOLISM W CONTRAST Result Date: 10/20/2024 1. No evidence of pulmonary embolism. 2. Moderate to large pericardial effusion with findings suggestive of pericarditis. 3. Moderate left pleural effusion and small right pleural effusion. 4. Consolidation and atelectasis of the infrahilar left lung. XR CHEST (2 VW) Result Date: 10/20/2024 1. Moderate left pleural effusion with apparent left basal atelectasis. 2. Cardiomegaly. Physical Examination: General appearance: alert, cooperative and no distress Lungs: clear to auscultation bilaterally, normal effort Heart: regular rate and rhythm, no murmur Abdomen: soft, nontender, nondistended, normal bowel sounds Extremities: no edema, redness, tenderness in the calves Skin: no gross lesions or rashes Assessment: Hospital Problems Last Modified POA * (Principal) Pericardial effusion 10/20/2024 Yes Bilateral pleural effusion 10/20/2024 Yes Acute pericarditis 10/20/2024 Yes Plan: Patient status inpatient in the Progressive Unit/Step down Pericardial effusion Cardiology consulted. Echo was done results are pending Monitor pulse ox, telemetry, vitals closely Bilateral pleural effusions Consult IR for thoracentesis, sample sent for lab analysis Pericarditis Likely viral etiology. No indication for further antibiotics at this time. Will initiate NSAIDs and colchicine. Appreciate further input from cardiology. GI prophylaxis with Protonix, DVT prophylaxis with pneumatic compression devices Brodie Anaya MD 10/21/2024 1:03 PM * Gregg Rajput RN - 10/21/2024 11:51 AM EDT Patient to US for left thoracentesis. JR BANKS and NATY RDMS at bedside. Site prepped and draped, area numbed with lidocaine. 500ml of naty colored fluid drained. Specimen collected. Dry sterile drsg with tegaderm placed to site. Patient tolerated well. * Halle Da Silva OT - 10/21/2024 10:05 AM EDT Occupational Therapy Occupational Therapy Initial Evaluation Facility/Department: [facility] CAR 2- STEPDOWN Patient Name: Katlin Carpenter : 1960 Date of Service: 10/21/2024 Chief Complaint Patient presents with Chest Pain Past Medical History: has no past medical history on file. Past Surgical History: has a past surgical history that includes Cholecystectomy; section;hernia repair; cyst removal; and Nasal septum surgery. Discharge Recommendations Discharge Recommendations: Patient would benefit from continued therapy after discharge (Discussed potential of outpatient PT for endurance, informed pt to discuss with PT upon evaluation.) OT Equipment Recommendations Equipment Needed: No Assessment Assessment: Pt completed functional mobility and ADL tasks reported below IND with no acute deficits observed. Pt declines any concern of ability to complete ADLs and functional mobility tasks independently. Pt does not currently require skilled OT services at this time. Will defer OT services. Pt educated to report to RN / MD if functional changes occur for reevaluation. Pt had good return to all education. PT to evaluate. Prognosis: Good Decision Making: Low Complexity No Skilled OT: No OT goals identified REQUIRES OT FOLLOW-UP: No Activity Tolerance Activity Tolerance: Patient Tolerated treatment well Safety Devices Type of Devices: Call light within reach;Gait belt;Left in bed;Nurse notified Restraints Restraints Initially in Place: No AM-PAC AM-PAC Daily Activity - Inpatient How much help is needed for putting on and taking off regular lower body clothing?: None How much help is needed for bathing (which includes washing, rinsing, drying)?: None How much help is needed for toileting (which includes using toilet, bedpan, or urinal)?: None How much help is needed for putting on and taking off regular upper body clothing?: None How much help is needed for taking care of personal grooming?: None How much help for eating meals?: None (Currently NPO for procedure) AM-PAC Inpatient Daily Activity Raw Score: 24 AM-PAC Inpatient ADL T-Scale Score : 57.54 ADL Inpatient CMS 0-100% Score: 0 ADL Inpatient CMS G-Code Modifier : CH Restrictions/Precautions Restrictions/Precautions Restrictions/Precautions: General Precautions;NPO Activity Level: Up with Assist Required Braces or Orthoses?: No O2 Device: None (Room air) Subjective General Patient assessed for rehabilitation services?: Yes Family / Caregiver Present: Yes (Spouse) Subjective Subjective: Pt pleasant and agreeable to OT evaluation this AM. Ok per RN to see pt. Pt supine in bed upon arrival and exit, spouse present. Reports no pain this date. Pain Pre-Pain: 0 Post-Pain: 0 Home Setup/Prior Level of Function Social/Functional History Lives With: Spouse Type of Home: House Home Layout: One level Home Access: Stairs to enter without rails Entrance Stairs - Number of Steps: 3 Bathroom Shower/Tub: Walk-in shower Bathroom Toilet: Standard Bathroom Equipment: Built-in shower seat;Hand-held shower Home Equipment: None Has the patient had two or more falls in the past year or any fall with injury in the past year?: No Prior Level of Assist for ADLs: Independent Prior Level of Assist for Homemaking: Independent Homemaking Responsibilities: Yes Prior Level of Assist for Ambulation: Independent household ambulator, with or without device;Independent community ambulator, with or without device Prior Level of Assist for Transfers: Independent Active Store Administrative Assistant: Yes Mode of Transportation: [facility] 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 Leisure & Hobbies: go out to eat Vision/Hearing Vision Vision: Impaired Vision Exceptions: Wears glasses at all times Hearing Hearing: Within functional limits BUE Assessment Gross Assessment AROM: Within functional limits PROM: Within functional limits Strength: Within functional limits (BUE grossly 5/5) Coordination: Within functional limits Tone: Normal Sensation: Intact (Denies n/t) Hand Dominance: Right Objective Orientation Overall Orientation Status: Within Functional Limits Cognition Overall Cognitive Status: WFL Activities of Daily Living Feeding: Independent;NPO;Based on clinical judgement Feeding Skilled Clinical Factors: Pt currently NPO for procedure, but reports no concerns of self-feeding, based on functional performance IND. Grooming: Independent Grooming Skilled Clinical Factors: Standing sinkside, pt completed hand hygiene, oral hygiene, washed face, and combed hair IND. UE Bathing: Independent;Based on clinical judgement LE Bathing: Independent;Based on clinical judgement UE Dressing: Independent;Based on clinical judgement UE Dressing Skilled Clinical Factors: Pt dressed in pants, reports no concerns for dressing IND. LE Dressing: Independent;Based on clinical judgement Putting On/Taking Off Footwear: Independent;Based on clinical judgement Toileting: Independent Toileting Skilled Clinical Factors: Pt completed toilet transfer IND, no device, no grab bar use. Did not void this date, but reports toileting prior to bid writer's entrance IND. Balance Balance Sitting: Without support (Pt seated EOB for MMT, eval questions unsupported static-IND dynamic-IND with good balance/tolerance overall ~10 minutes.) Standing: Without support (Pt standing for functional mobility/transfers, grooming sinkside with nodevice ~8 minutes total, demo'd good balance and tolerance overall.) Transfers/Mobility Bed mobility Supine to Sit: Independent Sit to Supine: Independent Scooting: Independent Bed Mobility Comments: HOB elevated ~30 degrees. Transfers Sit to stand: Independent Stand to sit: Independent Transfer Comments: Pt completed sit<>stand from EOB multiple trials with no device IND. Toilet Transfers Toilet - Technique: Ambulating Equipment Used: Standard toilet Toilet Transfer: Independent Toilet Transfers Comments: Pt completed with no device, no grab bar use. Functional Mobility: Independent Functional Mobility Skilled Clinical Factors: Pt completed long household distances within hospitalhallway and within room to/from bathroom with no device, per pt baseline, good balance and tolerance overall. Patient Education Patient Education Education Given To: Patient;Family Education Provided: Role of Therapy;Plan of Care;ADL Adaptive Strategies;Transfer Training;Energy Conservation;Fall Prevention Strategies Education Provided Comments: Educated pt on role of OT, POC, safety awareness during functional mobility/transfers, energy conservation tech (activity pacing, deep breathing). Education Method: Verbal Barriers to Learning: None Education Outcome: Demonstrated understanding;Verbalized understanding Goals Short Term Goals Time Frame for Short Term Goals: D/C OT Plan Occupational Therapy Plan Times Per Week: D/C OT Minutes OT Individual Minutes Time In: 851 Time Out: 915 Minutes: 24 Time Code Minutes Timed Code Treatment Minutes: 15 [facility]* Diagnosis Fungal nail infection Dermatophytosis of nail documented in this encounter [facility] Work Phone: evaluation note* Diagnosis Left lower lobe pulmonary infiltrate documented in this encounter [facility] note* Diagnosis Pericardial effusion- Primary Unspecified disease of pericardium Pleural effusion Unspecified pleural effusion Pericardial effusion Unspecified disease of pericardium Bilateral pleural effusion Unspecified pleural effusion Acute pericarditis Acute pericarditis, unspecified documented in this encounter [facility] note* Diagnosis Pericardial effusion Unspecified disease of pericardium documented in this encounter [facility] for visit Narrative* Cardiology (Routine) - Not Required - RTASpecialtyDiagnoses / ProceduresReferred By ContactReferred To ContactCardiology Diagnoses Pericardial effusion Procedures CARY (PRN contrast/bubble/3D) AL ECHO TRANSESOPHAG R-T 2D W/PRB IMG ACQUISJ I&R AL DOP ECHOCARD COLOR FLOW VELOCITY MAPPING AL DOPPLER ECHOCARD PULSE WAVE W/[place] [address] [facility] [address] [place] [address] Phone: tel: fax: Referral IDStatusReasonStart DateExpiration DateVisits RequestedVisits [id number] - RTA [facility] Summary Purpose Family History No Family History Records FoundNo Family History Records FoundNo Family History Records FoundNo Family History Records FoundNo Family History Records FoundNo Family History Records FoundNo Family History Records Found Advance Directives No Advanced Directives Records Found Date ActivatedDate InactivatedComments10/20/2024 7:53 PMDate ActivatedDate InactivatedComments11/09/2024 8:18 AMDate ActivatedDate InactivatedComments 10/20/2024 7:53 PM10/22/2024 8:25 PMDate ActivatedDate InactivatedComments11/09/2024 8:18 AMDate ActivatedDate InactivatedComments10/20/2024 7:53 PM10/22/2024 8:25 PM Additional Source Comments INFORMATION SOURCE (unrecogn ized section and content) DATE CREATED AUTHOR 09/25/2022 [facility] DATE CREATED AUTHOR AUTHOR'S ORGANIZ ATION 02/22/2024 [facility] DATE CREATED AUTHOR AUTHOR'S ORGANIZ ATION 10/23/2024 [facility] DATE CREATED AUTHOR AUTHOR'S ORGANIZ ATION 10/30/2024 [facility] DATE CREATED AUTHOR AUTHOR'S ORGANIZ ATION 11/28/2024 [facility] DATE CREATED AUTHOR AUTHOR'S ORGANIZ ATION 12/31/[address] [facility] DATE CREATED AUTHOR AUTHOR'S ORGANIZ ATION 01/20/2025 [facility] Care Teams (unrecognized sec tion and content) Team MemberRelationshipSpecialtyStart [place] [address] [place] [address] PCP - GeneralPhysician Assistant02/04/23Team MemberRelationshipSpecialtyStart [place] [address] [place] [address] PCP - GeneralPhysician Assistant02/04/23Team MemberRelationshipSpecialtyStart [place] [address] [place] [address] PCP - GeneralFamily Medicine10/27/24Team MemberRelationshipSpecialtyStart [place] [address] [place] [address] PCP - GeneralFamily Medicine10/27/24 Reason for Visit (unrecogniz ed section and content) ReasonCommentsChest PainSpecialtyDiagnoses / ProceduresReferred By Contact Referred To Contact Diagnoses Pericardial effusion Domo Bonilla DO [facility] [place] [address] Phone: tel: fax: [facility] [address] [place] [address] Referral IDStatusReasonStart DateExpiration DateVisits RequestedVisits [id number] Ordered Prescriptions (unrec ognized section and content) PrescriptionSigDispense QuantityRefillsLast FilledStart DateEnd Date furosemide (LASIX) 20 MG tablet Take 1 tablet by mouth daily 60 tablet 5011/21/2024 valsartan (DIOVAN) 40 MG tablet Take 1 tablet by mouth daily 30 tablet 10/23/2024 Scheduled Active and Recently Administ ered Medications (unrecognized section and content) Medication Order//09/2024 colchicine (COLCRYS) tablet 0.6 mg 0.6 mg, Oral, 2 TIMES DAILY, First dose on Sat10/20/24 at 2100, Until Discontinued * 2137 (Given - Provider: Diamante Mckeon RN) * 0819 (Given - Provider: Fidelia Hopper RN) * 205 (Given - Provider: Diamante Mckeon RN) * 0907 (Given - Provider: Emma Delatorre, SOLANGE) * 2100 (Due) furosemide (LASIX) injection 20 mg 20 mg, IntraVENous, 2 TIMES DAILY, First dose on Sat10/21/24 at 1800, Until Discontinued * 1703 (Given - Provider: Fidelia Hopper RN) * 0906 (Given - Provider: Emma Delatorre, SOLANGE) * 1800 (Due) ibuprofen (ADVIL;MOTRIN) tablet 600 mg 600 mg, Oral, 3 TIMES DAILY WITH MEALS, First dose on Sat10/21/24 at 0800, Until Discontinued * 0818 (Given - Provider: Fidelia Hopper RN) * 1401 (Not Given - Provider: Fidelia Hopper RN - Reason: Patient/family refused) * 1704 (Given - Provider: Fidelia Hopper RN) * 0916 (Given - Provider: Emma Delatorre, SOLANGE) * 1313 (Given - Provider: Emma Delatorre, SOLANGE) * 1700 (Due) pantoprazole (PROTONIX) tablet 40 mg 40 mg, Oral, DAILY BEFORE BREAKFAST, First dose on Sat10/21/24 at 0700, Until Discontinued, Do not crush or break. Substituted for Omeprazole (PRILOSEC). * 0633 (Given - Provider: Diamante Mckeon RN) * 0650 (Given - Provider: Diamante Mckeon RN) sodium chloride flush 0.9 % injection 5-40 mL 5-40 mL, IntraVENous, EVERY 12 HOURS SCHEDULED (2 times per day), First dose on Sat10/20/24 at 2100,Until Discontinued, For Line Patency: Peripheral IV = 5 mL; Midline or Central Line = 10 mL/lumen. If following IV push medication, administer flush at same rate as the IV push. Flush volume is determined by type of infusion therapy being given. For non-viscous solutions use: Peripheral IV = 5 mL Midline or Central Line = 10 mL/lumen For viscous solutions (i.e. blood components, parenteral nutrition, contrast media, or after obtaining blood sample) use: Peripheral IV = 10 mL Midline or Central Line = 20 mL/lumen * 2139 (Given - Provider: Diamante Mckeon RN) * 0820 (Given - Provider: Fidelia Hopper RN) * 205 (Given - Provider: Diamante Mckeon RN) * 0907 (Given - Provider: Emma Delatorre, SOLANGE) * 2100 (Due) valsartan (DIOVAN) tablet 40 mg 40 mg, Oral, DAILY, First dose on Sat10/21/24 at 1600, Until Discontinued * 1703 (Given - Provider: Fidelia Hopper RN) * 0909 (Given - Provider: Emma Delatorre, SOLANGE) Medication Order10/20///09/2024 0.9 % sodium chloride infusion IntraVENous, at 5-250 mL/hr, PRN, if patient receiving piggyback infusions and maintenance fluids are not ordered, Starting on Sat10/20/24 at 1952, For piggyback infusion, administer at same rate as piggyback for a total of 25 mL. Enter 25 mL into dose field and piggyback rate into rate field of order. If piggyback is infusing at a rate less than 100 mL/hr, enter 25 mL into dose field and 100 mL/hr into rate field of order. acetaminophen (TYLENOL) suppository 650 mg(Linked Group 1) 650 mg, Rectal, EVERY 6 HOURS PRN, Starting on Sat10/20/24 at 1952, Until Discontinued, Pain Mild (1-3), allowed for higher pain score per patient request, Fever, For temp greater than 100.4 F (38 C),Administer if oral route cannot be used. * 0523 (See Alternative - Provider: Diamante Mckeon RN) acetaminophen (TYLENOL) tablet 650 mg(Linked Group 1) 650 mg, Oral, EVERY 6 HOURS PRN, Starting on Sat10/20/24 at 1952, Until Discontinued, Pain Mild (1-3), allowed for higher pain score per patient request, Fever, For temp greater than 100.4 F (38 C), Maximum dose of acetaminophen is 4000 mg from all sources in 24 hours. * 0523 (Given - Provider: Diamante Mckeon RN) iopamidol (ISOVUE-370) 76 % injection 75 mL (COMPLETED) 75 mL, IntraVENous, IMG ONCE PRN, 1 dose, Starting on Sat10/20/24 at 1630, Until Sat10/20/24 at 1723,Other * 1723 (Given - Provider: Fidelia Monge) magnesium sulfate 2000 mg in 50 mL IVPB premix 2,000 mg, IntraVENous, at 25 mL/hr, Administer over 2 Hours, PRN, Other, Magnesium Replacement, Starting on Sat10/20/24 at 1952, Mag Lab Replacement Action 1.4-1.6 mg/dL 2,000 mg Total Dose Given as 1,000 mg IVPB x 2 doses or 2,000 mg IVPB x 1 dose 1.0-1.3 mg/dL 4,000 mg Total Dose Given as 1,000 mgIVPB x 4 doses or 2,000 mg IVPB x 2 doses Less than 1.0 mg/dL CALL PHYSICIAN and give 4,000 mg Total Dose Given as 1,000 mg IVPB x 4 doses or 2,000 mg IVPB x 2 doses Infuse at 1,000 mg/hr Repeat Mag level 1 hour after final administration Protocol not for use in Patients with CrCl less than 30ml/min ondansetron (ZOFRAN) injection 4 mg(Linked Group 2) 4 mg, IntraVENous, EVERY 6 HOURS PRN, Starting on Sat10/20/24 at 1952, Until Discontinued, Nausea, Vomiting, Administer if oral route cannot be used. ondansetron (ZOFRAN-ODT) disintegrating tablet 4 mg(Linked Group 2) 4 mg, Oral, EVERY 8 HOURS PRN, Starting on Sat10/20/24 at 1952, Until Discontinued, Nausea, Vomiting polyethylene glycol (GLYCOLAX) packet 17 g 17 g, Oral, DAILY PRN, Starting on Sat10/20/24 at 1952, Until Discontinued, Constipation, First linetherapy for constipation potassium bicarb-citric acid (EFFER-K) effervescent tablet 40 mEq(Linked Group 3) 40 mEq, Oral, PRN, Starting on Sat10/20/24 at 1952, Until Sat11/20/24 at 1951, Per Potassium Replacement Protocol, Administer as alternative if patient unable to tolerate oral tablet. K Lab ReplacementAction 3.1 to 3.5 40 mEq ORAL x 1 Under 3.1 Refer to IV replacement protocol Recheck K level in AM.Protocol not for use in patients with CrCl less than 30 mL/min. Do not chew or crush. Dissolve flavo red tablets completely in 3 to 4 ounces of cold water; unflavored tablets may be dissolved in 3 to 4 ounces of cold juice. Patient to sip slowly over a 5 to 10 minute period. May further dilute if GIadverse effects occur. potassium chloride (KLOR-CON M) extended release tablet 40 mEq(Linked Group 3) 40 mEq, Oral, PRN, Starting on Sat10/20/24 at 1952, Until Sat11/20/24 at 1951, Potassium Replacement,May give alternative linked oral order (ordered as effervescent, packet, or liquid solution) if patient unable to tolerate tablet. K Lab Replacement Action 3.1 to 3.5 40 mEq ORAL x 1 Under 3.1 Refer to IV replacement protocol Recheck K level in AM. Protocol not for use in patients with CrCl less than 30 mL/min. Do not crush, chew, or suck on tablet. Tablet may also be broken in half and each halfswallowed separately. potassium chloride 10 mEq/100 mL IVPB (Peripheral Line)(Linked Group 3) 10 mEq, IntraVENous, PRN, Starting on Sat10/20/24 at 1952, Until Sat11/20/24 at 1951, at 100 mL/hr, Potassium Replacement, K Lab Replacement Action 2.7 to 3.0 10 mEq IVPB x 6 doses (60 mEq Total) Under2.7 CALL PROVIDER and administer 10 mEq IVPB x 6 doses (60 mEq Total) Infuse at 10 mEq/hr. Repeat Potassium lab 1 hour after final administration. Protocol not for use in patients with CrCl less than30 mL/min. sodium chloride flush 0.9 % injection 5-40 mL 5-40 mL, IntraVENous, PRN, Starting on Sat10/20/24 at 1952, Until Discontinued, Line Care, After every IV line use, For Line Patency: Peripheral IV = 5 mL; Midline or Central Line = 10 mL/lumen. If following IV push medication, administer flush at same rate as the IV push. Flush volume is determinedby type of infusion therapy being given. For non-viscous solutions use: Peripheral IV = 5 mL Midline or Central Line = 10 mL/lumen For viscous solutions (i.e. blood components, parenteral nutrition, contrast media, or after obtaining blood sample) use: Peripheral IV = 10 mL Midline or Central Line = 20 mL/lumen Order Group 1: acetaminophen (TYLENOL) tablet 650 mgJump to med 650 mg, Oral, EVERY 6 HOURS PRN, Starting on Sat10/20/24 at 1952, Until Discontinued, Pain Mild (1-3), allowed for higher pain score per patient request, Fever, For temp greater than 100.4 F (38 C), Maximum dose of acetaminophen is 4000 mg from all sources in 24 hours. Or acetaminophen (TYLENOL) suppository 650 mgJump to med 650 mg, Rectal, EVERY 6 HOURS PRN, Starting on Sat10/20/24 at 1952, Until Discontinued, Pain Mild (1-3), allowed for higher pain score per patient request, Fever, For temp greater than 100.4 F (38 C),Administer if oral route cannot be used. Group 2: ondansetron (ZOFRAN-ODT) disintegrating tablet 4 mgJump to med 4 mg, Oral, EVERY 8 HOURS PRN, Starting on Sat10/20/24 at 1952, Until Discontinued, Nausea, Vomiting Or ondansetron (ZOFRAN) injection 4 mgJump to med 4 mg, IntraVENous, EVERY 6 HOURS PRN, Starting on Sat10/20/24 at 1952, Until Discontinued, Nausea, Vomiting, Administer if oral route cannot be used. Group 3: potassium chloride (KLOR-CON M) extended release tablet 40 mEqJump to med 40 mEq, Oral, PRN, Starting on Sat10/20/24 at 1952, Until Sat11/20/24 at 1951, Potassium Replacement,May give alternative linked oral order (ordered as effervescent, packet, or liquid solution) if patient unable to tolerate tablet. K Lab Replacement Action 3.1 to 3.5 40 mEq ORAL x 1 Under 3.1 Refer to IV replacement protocol Recheck K level in AM. Protocol not for use in patients with CrCl less than 30 mL/min. Do not crush, chew, or suck on tablet. Tablet may also be broken in half and each halfswallowed separately. Or potassium bicarb-citric acid (EFFER-K) effervescent tablet 40 mEqJump to med 40 mEq, Oral, PRN, Starting on Sat10/20/24 at 1952, Until Sat11/20/24 at 1951, Per Potassium Replacement Protocol, Administer as alternative if patient unable to tolerate oral tablet. K Lab ReplacementAction 3.1 to 3.5 40 mEq ORAL x 1 Under 3.1 Refer to IV replacement protocol Recheck K level in AM.Protocol not for use in patients with CrCl less than 30 mL/min. Do not chew or crush. Dissolve flavo red tablets completely in 3 to 4 ounces of cold water; unflavored tablets may be dissolved in 3 to 4 ounces of cold juice. Patient to sip slowly over a 5 to 10 minute period. May further dilute if GIadverse effects occur. Or potassium chloride 10 mEq/100 mL IVPB (Peripheral Line)Jump to med 10 mEq, IntraVENous, PRN, Starting on Sat10/20/24 at 1952, Until Sat11/20/24 at 1951, at 100 mL/hr, Potassium Replacement, K Lab Replacement Action 2.7 to 3.0 10 mEq IVPB x 6 doses (60 mEq Total) Under2.7 CALL PROVIDER and administer 10 mEq IVPB x 6 doses (60 mEq Total) Infuse at 10 mEq/hr. Repeat Potassium lab 1 hour after final administration. Protocol not for use in patients with CrCl less than30 mL/min. FOR RECORDS PERTAINING TO PATIENTS WHO ARE OR HAVE BEEN ENROLLED IN A CHEMICAL DEPENDENCY/SUBSTANCEABUSE PROGRAM, SOME INFORMATION MAY BE OMITTED. This clinical summary was aggregated from multiple sources. Caution should be exercised in using it in the provision of clinical care. This summary normalizes information from multiple sources, and as a consequence, information in this document may materially change the coding, format and clinical context of patient data. In addition, data may be omitted in some cases. CLINICAL DECISIONS SHOULD BE BASED ON THE PRIMARY CLINICAL RECORDS. [facility] [employer] [facility]. provides no warranty or guarantee of the accuracy or completeness of information in this document.
--- NOTE | 2025-03-23 18:55 | MM_ITS ---
Patient Name: LENKA SILVERMAN MR#: [id number] : 1960 Exam Date: 03/23/2025 Ordering Doctor: Dr. ROBERAT HALLMAN RADIOLOGY REPORT PROCEDURE: MM TOMOSYNTHESIS SCREENING BI COMPARISON: MM TOMOSYNTHESIS SCREENING BI, 02/18/2024. MG MAMM SCREEN 3D JACQUELINE CAD, 07/17/2022. MG MAMM SCREEN 3D JACQUELINE CAD, 07/11/2021. MG MAMM JACQUELINE SCRN W CAD DIG, 10/14/2013. INDICATIONS: Screening Calculator Name NCI Breast Cancer Risk Assessment Tool 5 Year Breast Cancer Risk 2.00% Lifetime Breast Cancer Risk 8.40% Personal Breast Cancer No Personal Ovarian Cancer No Treatments None Family Cancers Aunt-paternal with breast cancer at age ~40. LOCATION: [facility] BREAST COMPOSITION: There are scattered areas of fibroglandular density. FINDINGS: DIAGNOSTIC CATEGORY 1--NEGATIVE. RIGHT BREAST: No significant suspicious finding. LEFT BREAST: No significant suspicious finding. RECOMMENDATIONS: ROUTINE MAMMOGRAM AND CLINICAL EVALUATION IN 12 MONTHS. Dictated by: Salo Braun MD on 03/24/2025 at 11:21 Approved by: Salo Braun MD on 03/24/2025 at 11:24
== END 2025-03-23 18:25 | disposition home or self-care (01) ==
LOC: MAMMO 18:27
PROVIDERS: PCP Family Medicine; Visit Provider Family Medicine
DX: Z12.31 Encounter for screening mammogram for malignant neoplasm of breast (principal); Z80.3 Family history of malignant neoplasm of breast
CPT/HCPCS: 77063; 77067